=== PATIENT | female | born 1965 | race Caucasian/White ===

== ENCOUNTER 2017-08-10 10:43 | Outpatient (CLI) | payer MEDICAID ==
[~2017-08-10] VITALS: Ht 165.1 cm; Wt 63.0 kg
[~2017-08-10 10:43] MED LIST: HYDR50TA76 PO; IBP800T PO; OMEP-10 PO; celebrex; flexeril; savella
[2017-08-10] MEDS ORDERED: PANT40TA3 PO (11:03)
[2017-08-10] MEDS ORDERED: PENT100C3 PO (11:03)
[2017-08-10] MEDS ORDERED: DULO60CA6 PO (11:03)
[2017-08-10] MEDS ORDERED: TIZA4TAB3 PO (11:03)
[2017-08-10] MEDS ORDERED: PROP10TA8 PO (11:03)
[2017-08-10] MEDS ORDERED: LISI10TA2 PO (11:03)
[2017-08-10] MEDS ORDERED: LURA60TA2 PO (11:03)
[2017-08-10] MEDS ORDERED: ESTR1PAT TD (11:03)
[2017-08-10] MEDS ORDERED: HYDR-700 PO (11:03)
[2017-08-10] MEDS ORDERED: PREG200C PO (11:03)
[2017-08-10] MEDS ORDERED: LORA10TA76 PO (11:03)
[2017-08-10] MEDS ORDERED: SUCR1TAB36 PO (11:03)
[2017-08-10] MEDS ORDERED: ZOLP5TAB PO (11:03)
[2017-08-10] MEDS ORDERED: TRAM50TA2 PO (11:03)
[2017-08-10] MEDS ORDERED: LITH300T3 PO (11:03)
== END 2017-08-10 11:04 ==
LOC: PREOP 10:43
PROVIDERS: ATTEND Surgery
DX: Z01.818 Encounter for other preprocedural examination (principal); Z86.010 Personal history of colon polyps; Z80.0 Family history of malignant neoplasm of digestive organs

== ENCOUNTER 2017-08-11 11:58 | Day surgery (SDC) | payer MEDICAID ==
[~2017-08-11] VITALS: Ht 165.1 cm; Wt 63.0 kg
[~2017-08-11 11:58] MED LIST changes: +DULO60CA6 PO; +ESTR1PAT TD; +HYDR-700 PO; +LISI10TA2 PO; +LITH300T3 PO; +LORA10TA76 PO; +LURA60TA2 PO; +PANT40TA3 PO; +PENT100C3 PO; +PREG200C PO; +PROP10TA8 PO; +SUCR1TAB36 PO; +TIZA4TAB3 PO; +TRAM50TA2 PO; +ZOLP5TAB PO
--- OUTSIDE RECORDS SUMMARY | 2017-08-11 12:01 | XMS REPORT | Clinical Summary ---
Author Author [facility] Organization [facility] Address Unknown Phone Unavailable Care Team Providers Care Manager Utility Name Role Phone Unverified, Unverified Md PCP Unavailable Trace Rodriguez MD Unavailable Unavailable Isreal Langley MD Unavailable Randal Brunson MD Unavailable Source Comments Some departments are not documenting in the electronic medical record. If you do not see the information that you expected, contact Release of Information in the Health Information Management department at [phone] for further assistance in locating additional records.[facility] Allergies Active Allergy Reactions Severity Noted Date Comments Propoxyphene UNKNOWN 02/20/2013 N-Acetaminophen Flu Vac 2011 (2-49yrs) UNKNOWN 02/20/2013 Patient has an allergic reaction to the flu vaccine Current Medications Prescription Sig. Disp. Refills Start End Date Status Date OLANZapine (ZYPREXA) 15 Take 15 mg by mouth at Active mg tablet bedtime daily. hydrOXYzine (VISTARIL) 50 Take 50 mg by mouth three Active mg capsule times daily as needed. estradiol(+) (CLIMARA) Apply 1 Patch to top of Active 0.025 mg/24 hr patch skin as directed every 7 days. milnacipran(+) (SAVELLA) Take 50 mg by mouth twice Active 50 mg tablet daily. omeprazole DR(+) Take 20 mg by mouth Active (PRILOSEC) 20 mg capsule daily. cloNIDine (CATAPRESS) 0.1 Take 0.1 mg by mouth Active mg tablet twice daily. traMADol (ULTRAM) 50 mg Take 50 mg by mouth every Active tablet 6 hours as needed. Active Problems Problem Noted Date Cervicalgia 12/01/2007 Social History Tobacco Use Types Packs/Day Years Used Date Never Assessed Sex Assigned at Date Recorded Not on file Last Filed Vital Signs Not on file Plan of Treatment Health Maintenance Due Date Last Done Comments PHYSICAL (COMPREHENSIVE) 1972 EXAM PERTUSSIS VACCINE 1976 TETANUS VACCINE 1982 CERVICAL CANCER SCREENING 09/25/1995 BREAST CANCER SCREENING 2005 COLORECTAL CANCER 09/25/2015 SCREENING INFLUENZA VACCINE 01/12/2017 Results Not on filefrom Last 3 Months
--- OUTSIDE RECORDS SUMMARY | 2017-08-11 12:01 | XMS REPORT | Continuity of Care Document ---
Author Author [facility] Organization [facility] Address Unknown Phone Unavailable Allergies Active Description Code Type Severity Reaction Onset Reported/Identified Relationship to Patient Clinical Status Yes acetaminophen [id number] Drug Allergy Unknown N/A 03/24/2012 Yes influenza virus vacc,specific [id number] Drug Allergy Unknown N/A 2011 Yes levofloxacin [id number] Drug Allergy Unknown N/A 03/24/2012 Yes propoxyphene napsylate [id number] Drug Allergy Unknown N/A 03/24/2012 Medications There is no data. Problems Date Dx Coded Attending Type Code Diagnosis Diagnosed By 03/26/2012 Ot 244.9 03/26/2012 Ot 276.8 03/26/2012 Ot 285.9 03/26/2012 Ot 288.60 03/26/2012 Ot 296.80 03/26/2012 Ot 305.1 03/26/2012 Ot 530.81 03/26/2012 Ot 729.1 03/26/2012 Ot 780.09 03/26/2012 Ot 780.65 03/26/2012 Ot 790.29 03/26/2012 Ot 968.0 03/26/2012 Ot 969.4 03/26/2012 Ot E849.0 03/26/2012 Ot E950.3 03/26/2012 Ot E950.4 03/26/2012 Ot V12.79 12/02/2012 RANI AVILA, MAHAMED Cruz Ot 300.00 12/02/2012 RANI AVILA, MAHAMED Cruz Ot 599.72 12/02/2012 MAHAMED SARAVIA MD Ot 728.85 04/19/2015 HELEN HAMILTON MD Ot M50.13 06/28/2015 HELEN HAMILTON MD Ot M50.13 06/28/2015 HELEN HAMILTON MD Ot Z79.899 08/23/2015 HELEN HAMILTON MD Ot M53.3 08/23/2015 HELEN HAMILTON MD Ot M54.5 09/01/2015 HELEN HAMILTON MD Ot M53.3 09/01/2015 HELEN HAMILTON MD Ot M54.5 09/01/2015 MARVA FUENTES MD Ot F17.210 09/01/2015 MARVA FUENTES MD Ot F23 Procedures There is no data. Results There is no data. Encounters ACCT No. Visit Date/Time Discharge Status Pt. Type Provider Facility Loc./Unit Complaint [id number] 09/01/2015 08:47:00 09/01/2015 16:17:00 DIS Emergency MARVA FUENTES MD [facility] ER [id number] 08/14/2015 16:04:00 08/14/2015 23:59:59 CLS Outpatient HELEN HAMILTON MD [facility] RAD [id number] 06/28/2015 08:41:00 06/28/2015 10:08:00 DIS Outpatient HELEN HAMILTON MD [facility] CARD [id number] 04/19/2015 10:46:00 04/19/2015 11:25:00 DIS Outpatient HELNE HAMILTON MD [facility] CARD [id number] 12/02/2012 18:44:00 12/02/2012 21:05:00 DIS Emergency RANI AVILA, MAHAMED Cruz [facility] ER [id number] 03/24/2012 16:30:00 Document Registration
[2017-08-11] MEDS ORDERED: LACTATED RINGERS 1,000 ML IV STA (12:09)
[2017-08-11] MEDS ORDERED: HURRICAINE EXT TUBE (BENZOCAINE) XX PRN (12:15)
[2017-08-11 12:24] VITALS: BP 140/88
[2017-08-11] MEDS ORDERED: LACTATED RINGERS 1,000 ML IV ONE (13:00)
[2017-08-11] MEDS ORDERED: MIDAZOLAM 2 MG/2 ML (VERSED) VIAL ONE (13:11)
[2017-08-11] MEDS ORDERED: PROPOFOL INJECTION 50 ML IV ONE (13:11)
--- NOTE | 2017-08-11 13:18 | Progress Note-Pre Operative ---
Pre-Operative Progress Note H&P Reviewed The H&P was reviewed, patient examined and no changes noted. Time Seen by Provider: 13:14 Date H&P Reviewed: Aug 11, 2017 Time H&P Reviewed: 13:16 Pre-Operative Diagnosis: Chronic Gastritis, Screening Colonoscopy VINH BROWN DO Aug 11, 2017 13:18
[2017-08-11] MEDS ORDERED: proPOfol 200 MG/20 ML (DIPRIVAN) VIAL IV ONE ×2 (13:28→13:37)
--- NOTE | 2017-08-11 14:19 | Progress Note-Post Operative ---
Post-Operative Progess Note Surgeon (s)/Sand Wheeler (s) Surgeon VINH BROWN DO Sand Wheeler: none Pre-Operative Diagnosis Chronic Gastritis, Screening Colonoscopy Post-Operative Diagnosis Gastritis, Duodenitis, Duodenal Polyp, Hiatal hernia Colon polyps, Diverticula, Internal hemorrhoids Procedure & Operative Findings Date of Procedure 08/11/17 Procedure Performed/Findings 1. EGD with bx 2. Colonoscopy with snare polypectomy Anesthesia Type IV Sedation by CONTENT CREATION MANAGER Estimated Blood Loss Estimated blood loss (mL): scant Specimens/Packing Specimens Removed Duodenal polyp Antral bx Colon polyp -cecum, Sigmoid colon and Rectum VINH BROWN DO Aug 11, 2017 14:19
--- NOTE | 2017-08-11 14:20 | Endoscopy Discharge Instruct ---
Endo Procedure/Findings Findings 1.: Hiatal Hernia, Gastritis 2.: Polyp 3.: Diverticulosis 4.: Internal Hemorrhoids Discharge Instructions - Activity: You might feel a little sleepy until tomorrow. This is due to the medicine you received to relax you. Until tomorrow, you should: NOT drive a car, operate machinery or power tools. NOT drink any alcoholic beverages. NOT make any important decisions or sign importortant papers. Do not return to work until tomorrow, unless otherwise instructed. Resume previous activities tomorrow. Diet: Start by taking liquids. If you tolerate liquids, advance to solid food. Make an appointment for one week. Notify Physician - If you experience excessive bleeding, unusual abdominal pain, fever, or chest pain, contact your doctor immediately. Follow-Up: - I have received and understand the above instructions and will call my doctor if I have any further questions. Patient Signature Date Nurse Signature Other (Relationship) VINH BROWN DO Aug 11, 2017 14:20
[2017-08-11 14:30] VITALS: BP 133/86
--- NOTE | 2017-08-11 14:57 | Anesthesia-General Post-Op ---
General Patient Condition Mental Status/LOC: Same as Preop Cardiovascular: Satisfactory Nausea/Vomiting: Absent Respiratory: Satisfactory Pain: Controlled Complications: Absent Post Op Complications Complications None Follow Up Care/Instructions Patient Instructions None needed. Anesthesia/Patient Condition Patient Condition Patient was doing well after procedure, no complaints, stable vital signs, no apparent adverse anesthesia problems. SANTOS KLEIN DO Aug 11, 2017 14:56
[2017-08-11 15:00] VITALS: BP 150/95
[2017-08-11 15:03] VITALS: BP 150/95
--- NOTE | 2017-08-12 01:37 | OPERATIVE REPORT ---
DATE OF SERVICE: PREOPERATIVE DIAGNOSES: 1. Gastritis. 2. Screening colonoscopy. 3. Abdominal pain. 4. Family history of colon cancer. POSTOPERATIVE DIAGNOSES: 1. Gastritis. 2. Duodenitis. 3. Duodenal polyp. 4 Hiatal hernia. 5. Colon polyps. 6. Diverticula. 7. Internal hemorrhoids. PROCEDURES: 1. EGD with biopsy. 2. Colonoscopy with snare polypectomy. SURGEON: Rupert Escudero DO. TOWEL INSPECTOR: None. ANESTHESIA: IV sedation by the BINDING DYER. SPECIMEN: 1. One duodenal polyp. 2. Antral biopsy. 3. Colon polyps from the cecum, sigmoid and rectum. BLOOD LOSS: Scant. FLUIDS: Per anesthesia. POSTOPERATIVE CONDITION: Stable. INDICATION FOR PROCEDURE: The patient is a 51-year-old female who has been having some chronic heartburn, sounds like chronic gastritis, history of Aida fundoplication, needs a workup, also need a screening colonoscopy plus she has a strong family history of colon cancer and she had some abdominal pain. FINDINGS: The patient had some gastritis, what looked like duodenitis. She also had duodenal polyp with a hiatal hernia, in the colon she had a 3 or 4 polyps. She had some diverticula and some internal hemorrhoids. No evidence of diverticulitis. PROCEDURE NOTE: After informed consent was obtained, the patient was brought to the endoscopy suite, placed in the bed in left lateral decubitus position. She was administered IV sedation by the BINDING DYER who then monitored her vitals the entire time, heart rate, blood pressure and pulse ox and the Olympus scope was inserted down the mouth into the esophagus down the stomach. Once in the stomach, I noted some gastritis, took a picture, pushed through into the duodenum, saw a small polyp and elected to do a biopsy of this polyp. Duodenum also was little bit red like duodenitis. I pulled back into the antrum, did a biopsy of the antrum and then retroflexed the scope, saw a small hiatal hernia, took a picture of this, did not note any obvious pathology. Esophagus looked okay. Pulled the scope slowly up out of esophagus and out the mouth. Switched gloves and switched scopes and then did the colonoscopy inserting the Olympus camera into the rectum. I pushed through all the way to the cecum about 160 cm, was able to get to the cecum, took a picture of appendiceal orifice, noted a polyp, did a snare polypectomy of this and then slowly withdrew the scope insufflating, looked circumferentially at the magallon looking at the cecum, up the ascending colon to the hepatic flexure, down the transverse colon and the splenic flexure, into the descending colon, then the sigmoid, saw a couple of polyps in the sigmoid colon, did snare polypectomies in here and then saw some diverticula. Took a picture and then continued down in the rectum, saw another polyp, took a picture of this polyp and then removed this with a snare polypectomy. I then retroflexed the rectal vault, saw some small internal hemorrhoids and then removed the scope. The patient tolerated the procedure and she was recovered in the endoscopy suite. Job ID: [id number] DocumentID: [id number] Dictated Date: 08/11/2017 14:51:20 Yardage Control Operator Date: 08/12/2017 01:37:02 Dictated By: RUPERT ESCUDERO DO
== END 2017-08-11 15:02 | disposition home or self-care (01) ==
LOC: ENDO 11:58
PROVIDERS: ATTEND Surgery
DX: Z12.11 Encounter for screening for malignant neoplasm of colon (principal); K29.50 Unspecified chronic gastritis without bleeding; K29.80 Duodenitis without bleeding; K31.7 Polyp of stomach and duodenum; K63.5 Polyp of colon; D12.5 Benign neoplasm of sigmoid colon; D12.8 Benign neoplasm of rectum; K44.9 Diaphragmatic hernia without obstruction or gangrene; K57.30 Diverticulosis of large intestine without perforation or abscess without bleeding; K64.8 Other hemorrhoids; Z80.0 Family history of malignant neoplasm of digestive organs; I10 Essential (primary) hypertension; M79.7 Fibromyalgia; Z86.010 Personal history of colon polyps; Z98.1 Arthrodesis status; F17.210 Nicotine dependence, cigarettes, uncomplicated; J45.909 Unspecified asthma, uncomplicated; F32.9 Major depressive disorder, single episode, unspecified; F41.9 Anxiety disorder, unspecified; F43.10 Post-traumatic stress disorder, unspecified

== ENCOUNTER 2017-11-16 17:21 | Emergency (ER) | payer OTHER, MEDICAID ==
[~2017-11-16] VITALS: Ht 167.6 cm; Wt 72.6 kg
[2017-11-16] MEDS ORDERED: WATER (STERILE) FOR INJECTION 20 ML ONE (17:25)
[2017-11-16] MEDS ORDERED: ZIPRASIDONE 20 MG INJ (GEODON) VIAL IM ONE ×2 (17:25→17:45)
--- OUTSIDE RECORDS SUMMARY | 2017-11-16 17:26 | XMS REPORT | Clinical Summary ---
Author Author [facility] Organization [facility] Address Unknown Phone Unavailable Care Team Providers Care Fixer Boarding Room Name Role Phone Unverified, Unverified Md PCP Unavailable Trace Rodriguez MD Unavailable Unavailable Isreal Langley MD Unavailable Randal Brunson MD Unavailable Source Comments Some departments are not documenting in the electronic medical record. If you do not see the information that you expected, contact Release of Information in the Health Information Management department at [phone] for further assistance in locating additional records.[facility] Allergies Active Allergy Reactions Severity Noted Date [...] PHYSICAL (COMPREHENSIVE) 1972 EXAM PERTUSSIS VACCINE 1976 HIV SCREENING 1980 TETANUS VACCINE 1982 CERVICAL CANCER SCREENING 09/25/1995 BREAST CANCER SCREENING 2005 COLORECTAL CANCER 09/25/2015 SCREENING INFLUENZA VACCINE 03/14/2018 Results Not on filefrom Last 3 Months
--- OUTSIDE RECORDS SUMMARY | 2017-11-16 17:26 | XMS REPORT ---
Author Author RAQUEL LOAIZA Organization [facility] Address [address] [place] [address] Care Team Providers Care Coal Hiker Name Role Phone RAQUEL LOAIZA Unavailable PROBLEMS Type Condition ICD9-CM Code [id number] Code Onset Dates Condition Status SNOMED Code Problem Bipolar disorder, current episode depressed, moderate F31.32 Active 341955744 Problem Generalized anxiety disorder F41.1 Active 51570929 Problem Borderline personality disorder F60.3 Active 52659824 Problem Bipolar affective disorder, currently depressed, mild F31.31 Active [id number] ALLERGIES No Information ENCOUNTERS Encounter Location Date Diagnosis [facility] [id number] [place] [address] [phone]- [phone] Aug, Bipolar disorder, current episode depressed, moderate F31.32 and Generalized anxiety disorder F41.1 [facility] [id number] [place] [address] 12858- 9069 Aug, Bipolar disorder, current episode depressed, moderate F31.32 and Generalized anxiety disorder F41.1 [facility] [id number] [place] [address] [phone]- [phone] Aug, Bipolar disorder, current episode depressed, moderate F31.32 and Generalized anxiety disorder F41.1 [facility] [id number] [place] [address] [phone]- 1755 Jul, Bipolar disorder, current episode depressed, moderate F31.32 and Generalized anxiety disorder F41.1 [facility] [id number] [place] [address] 95637- 3623 Jul, Bipolar disorder, current episode depressed, moderate F31.32 and Generalized anxiety disorder F41.1 [place] [id number] [place] [address] 80572- 4241 Jun, Bipolar affective disorder, currently depressed, mild F31.31 ; Generalized anxiety disorder F41.1 and Borderline personality disorder F60.3 [place] [address] [place] [address] 55342- 3120 May, Bipolar disorder, current episode depressed, moderate F31.32 and Generalized anxiety disorder F41.1 [facility] [address] [place] [address] 59789- 2953 May, Bipolar disorder, current episode depressed, moderate F31.32 and Generalized anxiety disorder F41.1 [place] [id number] [place] [address] 55012- 9798 Apr, Bipolar disorder, current episode depressed, moderate F31.32 and Generalized anxiety disorder F41.1 [place] [address] [place] [address] 16622- 3149 Apr, Bipolar affective disorder, currently depressed, mild F31.31 and Generalized anxiety disorder F41.1 [place] [id number] [place] [address] 20380- 4855 Apr, Bipolar affective disorder, currently depressed, mild F31.31 and Generalized anxiety disorder F41.1 [place] [address] [place] [address] 34260- 8666 Apr, Bipolar affective disorder, currently depressed, mild F31.31 ; Generalized anxiety disorder F41.1 and Borderline personality disorder F60.3 [place] [address] [place] [address] 55846- 6845 Mar, Bipolar affective disorder, currently depressed, mild F31.31 and Generalized anxiety disorder F41.1 [place] [address] [place] [address] 74799- 7040 Mar, Bipolar affective disorder, currently depressed, mild F31.31 and Generalized anxiety disorder F41.1 [facility] [address] [place] [address] 72522- 1657 Mar, Bipolar affective disorder, currently depressed, mild F31.31 and Generalized anxiety disorder F41.1 [place] [address] [address] Mar, Bipolar affective disorder, currently depressed, mild F31.31 and Generalized anxiety disorder F41.1 [place] [address] [address] Mar, Borderline personality disorder F60.3 ; Generalized anxiety disorder F41.1 and Bipolar affective disorder, currently depressed, mild F31.31 [place] [address] [address] Feb, Bipolar affective disorder, currently depressed, mild F31.31 and Generalized anxiety disorder F41.1 [place] [address] [place] [address] 65845- 1663 Feb, Bipolar affective disorder, currently depressed, mild F31.31 ; Generalized anxiety disorder F41.1 and Borderline personality disorder F60.3 [place] [address] [place] [address] 57735- 9988 Feb, Affective disorder F39 and Anxiety state, unspecified F41.1 [place] [id number] [place] [address] 79831- 6741 Jan, Affective disorder F39 and Anxiety state, unspecified F41.1 IMMUNIZATIONS No Known Immunizations SOCIAL HISTORY Never Assessed REASON FOR VISIT Depression and anxiety. PLAN OF CARE Activity Details Follow Up 1 Week Reason:depression and anxiety VITAL SIGNS MEDICATIONS Medication Instructions Dosage Frequency Start Date End Date Duration Status Propranolol HCl Active [place] Active Cymbalta Active Clonidine HCl Active Zyprexa Active Cephalexin Active Carafate Active Clarinex Active Lisinopril Active Meprobamate Active RESULTS No Results PROCEDURES Procedure Date Ordered Result Body Site Psychotherapy, patient &/family, 45 minutes, established patient Feb 08, 2017 INSTRUCTIONS MEDICATIONS ADMINISTERED No Known Medications MEDICAL (GENERAL) HISTORY Type Description Date Medical History HTN Medical History Asthma Medical History hypothyroidism Medical History IC Medical History hx Giovana Burre 1983 and 1984, 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 for keren/psychosis August 2015 Hospitalization History Jenise Davilaplin for psychosis/keren July 2015 Hospitalization History tachycardia and had heart monitor, observation 2012
--- OUTSIDE RECORDS SUMMARY | 2017-11-16 17:27 | XMS REPORT ---
Author Author RAQUEL LOAIZA Organization [facility] Address [address] [place] [address] Care Team Providers Care Dessert Cup Machine Feeder Name Role Phone RAQUEL LOAIZA Unavailable PROBLEMS Type Condition ICD9-CM Code [id number] Code Onset Dates Condition Status SNOMED Code Problem Bipolar disorder, current episode depressed, moderate F31.32 Active 321611118 Problem Generalized anxiety disorder F41.1 Active 99033692 Problem Borderline personality disorder F60.3 Active 26309804 Problem Bipolar affective disorder, currently depressed, mild F31.31 Active 708010092 ALLERGIES No Information ENCOUNTERS Encounter Location Date Diagnosis [facility] [id number] [place] [address] 99727- [phone] Aug, Bipolar disorder, current episode depressed, moderate F31.32 and Generalized anxiety disorder F41.1 [facility] [id number] [place] [address] 91804- [phone] Aug, Bipolar disorder, current episode depressed, moderate F31.32 and Generalized anxiety disorder F41.1 [facility] [id number] [place] [address] 34161- 4146 Aug, Bipolar disorder, current episode depressed, moderate F31.32 and Generalized anxiety disorder F41.1 [facility] [id number] [place] [address] 89617- 8162 Jul, Bipolar disorder, current episode depressed, moderate F31.32 and Generalized anxiety disorder F41.1 [facility] [id number] [place] [address] 52455- 7402 Jul, Bipolar disorder, current episode depressed, moderate F31.32 and Generalized anxiety disorder F41.1 [place] [id number] [place] [address] 20572- 6285 Jun, Bipolar affective disorder, currently depressed, mild F31.31 ; Generalized anxiety disorder F41.1 and Borderline personality disorder F60.3 [place] [address] [place] [address] 02943- 4233 May, Bipolar disorder, current episode depressed, moderate F31.32 and Generalized anxiety disorder F41.1 [facility] [address] [place] [address] 66077- 5410 May, Bipolar disorder, current episode depressed, moderate F31.32 and Generalized anxiety disorder F41.1 [place] [id number] [place] [address] 83635- 5858 Apr, Bipolar disorder, current episode depressed, moderate F31.32 and Generalized anxiety disorder F41.1 [place] [address] [place] [address] 17340- 9223 Apr, Bipolar affective disorder, currently depressed, mild F31.31 and Generalized anxiety disorder F41.1 [place] [id number] [place] [address] 75758- 4647 Apr, Bipolar affective disorder, currently depressed, mild F31.31 and Generalized anxiety disorder F41.1 [place] [address] [place] [address] 00188- 1611 Apr, Bipolar affective disorder, currently depressed, mild F31.31 ; Generalized anxiety disorder F41.1 and Borderline personality disorder F60.3 [place] [address] [place] [address] 19983- 9546 Mar, Bipolar affective disorder, currently depressed, mild F31.31 and Generalized anxiety disorder F41.1 [place] [address] [place] [address] 73693- 4935 Mar, Bipolar affective disorder, currently depressed, mild F31.31 and Generalized anxiety disorder F41.1 [facility] [address] [place] [address] 12203- 6971 Mar, Bipolar affective disorder, currently depressed, mild F31.31 and Generalized anxiety disorder F41.1 [place] [address] [address] Mar, Bipolar affective disorder, currently depressed, mild F31.31 and Generalized anxiety disorder F41.1 [place] [address] [address] Mar, Borderline personality disorder F60.3 ; Generalized anxiety disorder F41.1 and Bipolar affective disorder, currently depressed, mild F31.31 [place] [address] [address] Feb, Bipolar affective disorder, currently depressed, mild F31.31 and Generalized anxiety disorder F41.1 [place] [address] [place] [address] 39496- 4525 Feb, Bipolar affective disorder, currently depressed, mild F31.31 ; Generalized anxiety disorder F41.1 and Borderline personality disorder F60.3 [place] [address] [place] [address] 56936- 1519 Feb, Affective disorder F39 and Anxiety state, unspecified F41.[address] [place] [address] 46531- 0508 Jan, Affective disorder F39 and Anxiety state, unspecified F41.1 IMMUNIZATIONS No Known Immunizations SOCIAL HISTORY Never Assessed REASON FOR VISIT BH f/u, Depression and anxiety. PLAN OF CARE Activity Details Follow Up Next available Reason:depression and anxiety VITAL SIGNS MEDICATIONS Unknown Medications RESULTS No Results PROCEDURES Procedure Date Ordered Result Body Site Psychotherapy, patient &/family, 45 minutes, established patient Feb 18, 2017 INSTRUCTIONS MEDICATIONS ADMINISTERED No Known Medications [...] Hospital[facility] 2015 Hospitalization History [facility] Mc[facility]on for psychosis/keren July 2015 Hospitalization History tachycardia and had heart monitor, observation 2012
--- OUTSIDE RECORDS SUMMARY | 2017-11-16 17:27 | XMS REPORT ---
Author Author RAQUEL LOAIZA Organization [facility] Address [address] [place] [address] Care Team Providers Care Transplant Nurse Practitioner Name Role Phone RAQUEL LOAIZA Unavailable PROBLEMS Type Condition ICD9-CM Code [id number] Code Onset Dates Condition Status SNOMED Code Problem Bipolar disorder, current episode depressed, moderate F31.32 Active 587877422 Problem Generalized anxiety disorder F41.1 Active 66027009 Problem Borderline personality disorder F60.3 Active 54612942 Problem Bipolar affective disorder, currently depressed, mild F31.31 Active [id number] ALLERGIES No Information ENCOUNTERS Encounter Location Date Diagnosis [place] [id number] [place] [address] 03112- 8851 Dec, [place] [id number] [place] [address] 47680- 0520 Sep, Bipolar affective disorder, currently depressed, mild F31.31 ; Generalized anxiety disorder F41.1 ; Borderline personality disorder F60.3 and High risk medication use Z79.899 [place] [id number] [place] [address] 97196- 4628 Aug, Bipolar disorder, current episode depressed, moderate F31.32 and Generalized anxiety disorder F41.1 [place] [id number] [place] [address] 85661- 8565 Aug, Bipolar disorder, current episode depressed, moderate F31.32 and Generalized anxiety disorder F41.1 [place] [id number] [place] [address] 42290- 5297 Aug, Bipolar disorder, current episode depressed, moderate F31.32 and Generalized anxiety disorder F41.1 [place] [id number] [place] [address] 74805- 2018 Jul, Bipolar disorder, current episode depressed, moderate F31.32 and Generalized anxiety disorder F41.1 [facility] [address], [place] [address] Jul, Bipolar disorder, current episode depressed, moderate F31.32 and Generalized anxiety disorder F41.1 [facility] [address], [place] [address] Jun, Bipolar affective disorder, currently depressed, mild F31.31 ; Generalized anxiety disorder F41.1 and Borderline personality disorder F60.3 [facility] [address] [place] [address] 66974- 9570 May, Bipolar disorder, current episode depressed, moderate F31.32 and Generalized anxiety disorder F41.1 [facility] [address] [place] [address] 41884- 5399 May, Bipolar disorder, current episode depressed, moderate F31.32 and Generalized anxiety disorder F41.1 [facility] [address] [place] [address] 29543- 5844 Apr, Bipolar disorder, current episode depressed, moderate F31.32 and Generalized anxiety disorder F41.1 [facility] [address] [place] [address] 38532- 7346 Apr, Bipolar affective disorder, currently depressed, mild F31.31 and Generalized anxiety disorder F41.1 [facility] [address], [place] [address] Apr, Bipolar affective disorder, currently depressed, mild F31.31 and Generalized anxiety disorder F41.1 [facility] [address], [place] [address] Apr, Bipolar affective disorder, currently depressed, mild F31.31 ; Generalized anxiety disorder F41.1 and Borderline personality disorder F60.3 [facility] [address], [place] [address] Mar, Bipolar affective disorder, currently depressed, mild F31.31 and Generalized anxiety disorder F41.1 [place] [address], [place] [address] Mar, Bipolar affective disorder, currently depressed, mild F31.31 and Generalized anxiety disorder F41.1 [place] [address] [place] [address] 28333- 9397 Mar, Bipolar affective disorder, currently depressed, mild F31.31 and Generalized anxiety disorder F41.1 [place] [id number] [place] [address] 34432- 0002 Mar, Bipolar affective disorder, currently depressed, mild F31.31 and Generalized anxiety disorder F41.1 [place] [id number] [place] [address] 65014- 7893 Mar, Borderline personality disorder F60.3 ; Generalized anxiety disorder F41.1 and Bipolar affective disorder, currently depressed, mild F31.31 [place] [id number] [place] [address] 03060- 1689 Feb, Bipolar affective disorder, currently depressed, mild F31.31 and Generalized anxiety disorder F41.1 [place] [id number] [place] [address] 39349- 8608 Feb, Bipolar affective disorder, currently depressed, mild F31.31 ; Generalized anxiety disorder F41.1 and Borderline personality disorder F60.3 [place] [address] [place] [address] 52966- 2337 Feb, Affective disorder F39 and Anxiety state, unspecified F41.1 [place] [address] [place] [address] 89523- 4053 Jan, Affective disorder F39 and Anxiety state, unspecified F41.1 IMMUNIZATIONS No Known Immunizations SOCIAL HISTORY Never Assessed REASON FOR VISIT f/u, Depression and anxiety. 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 Medical History fibromyalgia Medical History mixed connective tissue disease from unknown etiology Medical History Vitamin D deficiency Surgical History C5-C6 spinal fusion Surgical History pilondial cyst removed Surgical History partial hysterectomy Surgical History hiatal hernia repair Surgical History cholecysectomy Surgical History tonsillectomy Hospitalization History OSH 4 times Hospitalization History [facility] for keren/psychosis August 2015 Hospitalization History [facility] for psychosis/keren July 2015 Hospitalization History tachycardia and had heart monitor, observation 2011
--- OUTSIDE RECORDS SUMMARY | 2017-11-16 17:27 | XMS REPORT ---
Author Author RAQUEL LOAIZA Organization [facility] Address [address] [place] [address] Care Team Providers Care Finance Executive Name Role Phone RAQUEL LOAIZA Unavailable PROBLEMS Type Condition ICD9-CM Code XAL27-TA Code Onset Dates Condition Status SNOMED Code Problem Bipolar disorder, current episode depressed, moderate F31.32 Active 639012921 Problem Generalized anxiety disorder F41.1 Active 50924888 Problem Borderline personality disorder F60.3 Active 08769878 Problem Bipolar affective disorder, currently depressed, mild F31.31 Active [id number] ALLERGIES No Information ENCOUNTERS Encounter Location Date Diagnosis [place] [id number] [place] [address] 75199- 6109 Dec, [place] [id number] [place] [address] 97611- 0162 Sep, Bipolar affective disorder, currently depressed, mild F31.31 ; Generalized anxiety disorder F41.1 ; Borderline personality disorder F60.3 and High risk medication use Z79.899 [place] [id number] [place] [address] 16737- 8320 Aug, Bipolar disorder, current episode depressed, moderate F31.32 and Generalized anxiety disorder F41.1 [place] [id number] [place] [address] 23951- 1256 Aug, Bipolar disorder, current episode depressed, moderate F31.32 and Generalized anxiety disorder F41.1 [place] [id number] [place] [address] 41982- 7137 Aug, Bipolar disorder, current episode depressed, moderate F31.32 and Generalized anxiety disorder F41.1 [place] [id number] [place] [address] 63425- 6222 Jul, Bipolar disorder, current episode depressed, moderate F31.32 and Generalized anxiety disorder F41.1 [facility] [address] [address]- [address] Jul, Bipolar disorder, current episode depressed, moderate F31.32 and Generalized anxiety disorder F41.1 [facility] [address] [address]- [address] Jun, Bipolar affective disorder, currently depressed, mild F31.31 ; Generalized anxiety disorder F41.1 and Borderline personality disorder F60.3 [facility] [address] [place] [address] 34461- 1871 May, Bipolar disorder, current episode depressed, moderate F31.32 and Generalized anxiety disorder F41.1 [facility] [address] [place] [address] 34058- 7023 May, Bipolar disorder, current episode depressed, moderate F31.32 and Generalized anxiety disorder F41.1 [facility] [address] [place] [address] 92331- 1289 Apr, Bipolar disorder, current episode depressed, moderate F31.32 and Generalized anxiety disorder F41.1 [facility] [address] [place] [address] 43001- 8949 Apr, Bipolar affective disorder, currently depressed, mild F31.31 and Generalized anxiety disorder F41.1 [facility] [address] [address]- 3706 Apr, Bipolar affective disorder, currently depressed, mild F31.31 and Generalized anxiety disorder F41.1 [facility] [address] [address]- 3336 Apr, Bipolar affective disorder, currently depressed, mild F31.31 ; Generalized anxiety disorder F41.1 and Borderline personality disorder F60.3 [facility] [address] [address]- 6962 Mar, Bipolar affective disorder, currently depressed, mild F31.31 and Generalized anxiety disorder F41.1 [place] [address] [address]- 7826 Mar, Bipolar affective disorder, currently depressed, mild F31.31 and Generalized anxiety disorder F41.1 [place] [address] [place] [address] 31829- 7045 Mar, Bipolar affective disorder, currently depressed, mild F31.31 and Generalized anxiety disorder F41.1 [place] [id number] [place] [address] 51612- 9737 Mar, Bipolar affective disorder, currently depressed, mild F31.31 and Generalized anxiety disorder F41.1 [place] [id number] [place] [address] 58224- 2436 Mar, Borderline personality disorder F60.3 ; Generalized anxiety disorder F41.1 and Bipolar affective disorder, currently depressed, mild F31.31 [place] [id number] [place] [address] 14346- 7930 Feb, Bipolar affective disorder, currently depressed, mild F31.31 and Generalized anxiety disorder F41.1 [place] [id number] [place] [address] 39124- 2362 Feb, Bipolar affective disorder, currently depressed, mild F31.31 ; Generalized anxiety disorder F41.1 and Borderline personality disorder F60.3 [place] [address] [place] [address] 09353- 4532 Feb, Affective disorder F39 and Anxiety state, unspecified F41.1 [place] [address] [place] [address] 50981- 5308 Jan, Affective disorder F39 and Anxiety state, unspecified F41.1 IMMUNIZATIONS No Known Immunizations SOCIAL HISTORY Never Assessed REASON FOR VISIT f/u, Depression and anxiety. PLAN OF CARE Activity Details Follow Up Next available Reason:depression and anxiety VITAL SIGNS MEDICATIONS Unknown Medications RESULTS No Results PROCEDURES Procedure Date Ordered Result Body Site Psychotherapy, patient &/family, 45 minutes, established patient Apr 08, 2017 INSTRUCTIONS MEDICATIONS ADMINISTERED No Known [...] Hospitalization History OSH 4 times Hospitalization History [facility] for keren/psychosis August 2015 Hospitalization History [facility] for psychosis/keren July 2015 Hospitalization History tachycardia and had heart monitor, observation 2011
--- OUTSIDE RECORDS SUMMARY | 2017-11-16 17:27 | XMS REPORT ---
Author Author RAQUEL LOAIZA Organization [facility] Address [address] [place] [address] Care Team Providers Care Dampproofer Name Role Phone RAQUEL LOAIZA Unavailable PROBLEMS Type Condition ICD9-CM Code MOQ90-FV Code Onset Dates Condition Status SNOMED Code Problem Bipolar disorder, current episode depressed, moderate F31.32 Active 937590556 Problem Generalized anxiety disorder F41.1 Active 90872729 Problem Borderline personality disorder F60.3 Active 58831157 Problem Bipolar affective disorder, currently depressed, mild F31.31 Active [id number] ALLERGIES No Information ENCOUNTERS Encounter Location Date Diagnosis [place] [id number] [place] [address] 22360- 4874 Dec, [place] [id number] [place] [address] 58692- 2971 Sep, Bipolar affective disorder, currently depressed, mild F31.31 ; Generalized anxiety disorder F41.1 ; Borderline personality disorder F60.3 and High risk medication use Z79.899 [place] [id number] [place] [address] 53882- 3506 Aug, Bipolar disorder, current episode depressed, moderate F31.32 and Generalized anxiety disorder F41.1 [place] [id number] [place] [address] 84150- 4023 Aug, Bipolar disorder, current episode depressed, moderate F31.32 and Generalized anxiety disorder F41.1 [place] [id number] [place] [address] 35151- 2742 Aug, Bipolar disorder, current episode depressed, moderate F31.32 and Generalized anxiety disorder F41.1 [place] [id number] [place] [address] 61777- 5637 Jul, Bipolar disorder, current episode depressed, moderate F31.32 and Generalized anxiety disorder F41.1 [facility] [address], [place] [address]- [address]16 Jul, Bipolar disorder, current episode depressed, moderate F31.32 and Generalized anxiety disorder F41.1 [facility] [address], [place] [address]- 2044 Jun, Bipolar affective disorder, currently depressed, mild F31.31 ; Generalized anxiety disorder F41.1 and Borderline personality disorder F60.3 [facility] [address] [place] [address] 97690- 8231 May, Bipolar disorder, current episode depressed, moderate F31.32 and Generalized anxiety disorder F41.1 [facility] [address] [place] [address] 80777- 8109 May, Bipolar disorder, current episode depressed, moderate F31.32 and Generalized anxiety disorder F41.1 [facility] [address] [place] [address] 03831- 8241 Apr, Bipolar disorder, current episode depressed, moderate F31.32 and Generalized anxiety disorder F41.1 [facility] [address] [place] [address] 94958- 5335 Apr, Bipolar affective disorder, currently depressed, mild F31.31 and Generalized anxiety disorder F41.1 [facility] [address], [place] [address]- 0458 Apr, Bipolar affective disorder, currently depressed, mild F31.31 and Generalized anxiety disorder F41.1 [facility] [address], [place] [address]- 2794 Apr, Bipolar affective disorder, currently depressed, mild F31.31 ; Generalized anxiety disorder F41.1 and Borderline personality disorder F60.3 [facility] [address], [place] [address]- 2300 Mar, Bipolar affective disorder, currently depressed, mild F31.31 and Generalized anxiety disorder F41.1 [place] [address], [place] [address]- 1789 Mar, Bipolar affective disorder, currently depressed, mild F31.31 and Generalized anxiety disorder F41.1 [place] [address] [place] [address] 21400- 5574 Mar, Bipolar affective disorder, currently depressed, mild F31.31 and Generalized anxiety disorder F41.1 [place] [id number] [place] [address] 89308- 6196 Mar, Bipolar affective disorder, currently depressed, mild F31.31 and Generalized anxiety disorder F41.1 [place] [id number] [place] [address] 51759- 4662 Mar, Borderline personality disorder F60.3 ; Generalized anxiety disorder F41.1 and Bipolar affective disorder, currently depressed, mild F31.31 [place] [id number] [place] [address] 13039- 1714 Feb, Bipolar affective disorder, currently depressed, mild F31.31 and Generalized anxiety disorder F41.1 [place] [id number] [place] [address] 75582- 1713 Feb, Bipolar affective disorder, currently depressed, mild F31.31 ; Generalized anxiety disorder F41.1 and Borderline personality disorder F60.3 [place] [address] [place] [address] 10691- 3486 Feb, Affective disorder F39 and Anxiety state, unspecified F41.1 [place] [address] [place] [address] 65391- 4625 Jan, Affective disorder F39 and Anxiety state, unspecified F41.1 IMMUNIZATIONS No Known Immunizations SOCIAL HISTORY Never Assessed REASON FOR VISIT f/u, Depression and anxiety. PLAN OF CARE Activity Details Follow Up 1 Week Reason:deperession and anxiety VITAL SIGNS MEDICATIONS Unknown Medications RESULTS No Results PROCEDURES Procedure Date Ordered Result Body Site Psychotherapy, patient &/family, 45 minutes, established patient Apr 13, 2017 INSTRUCTIONS MEDICATIONS ADMINISTERED No Known Medications [...] keren/psychosis August 2015 Hospitalization History [facility] for psychosis/keren July 2015 Hospitalization History tachycardia and had heart monitor, observation 2011
--- OUTSIDE RECORDS SUMMARY | 2017-11-16 17:27 | XMS REPORT ---
Author Author MAYO CALIRE Organization [facility] Address [address] [place] [address] Care Team Providers Care Administrative Support Manager Name Role Phone CLARENCEBALJINDER JAIMEA Unavailable PROBLEMS Type Condition ICD9-CM Code XUN86-SX Code Onset Dates Condition Status SNOMED Code Problem Bipolar disorder, current episode depressed, moderate F31.32 Active 263789985 Problem Generalized anxiety disorder F41.1 Active 48062575 Problem Borderline personality disorder F60.3 Active 62506182 Problem Bipolar affective disorder, currently depressed, mild F31.31 Active [id number] ALLERGIES Substance Reaction Event Type Date Status Depakote swelling Drug Allergy Feb, Active flu shot r/t hx Gullian [place] Non Drug Allergy Feb, Active ENCOUNTERS Encounter Location Date Diagnosis [facility] [id number] [place] [address] 64590- 5194 Sep, [facility] [id number] [place] [address] 15033[address] 2621 Aug, Bipolar disorder, current episode depressed, moderate F31.32 and Generalized anxiety disorder F41.1 [facility] [id number] [place] [address] 61308- 2394 Aug, Bipolar disorder, current episode depressed, moderate F31.32 and Generalized anxiety disorder F41.1 [facility] [id number] [place] [address] 66164- 0071 Aug, Bipolar disorder, current episode depressed, moderate F31.32 and Generalized anxiety disorder F41.1 [facility] [id number] [place] [address] 58294- 9403 Jul, Bipolar disorder, current episode depressed, moderate F31.32 and Generalized anxiety disorder F41.1 [facility] [id number] [address] Jul, Bipolar disorder, current episode depressed, moderate F31.32 and Generalized anxiety disorder F41.1 [facility] [id number] [place] [address] 35604- 5252 Jun, Bipolar affective disorder, currently depressed, mild F31.31 ; Generalized anxiety disorder F41.1 and Borderline personality disorder F60.3 [facility] [id number] [place] [address] 76806- 7523 May, Bipolar disorder, current episode depressed, moderate F31.32 and Generalized anxiety disorder F41.1 [place] [id number] [place] [address] 67793- 3961 May, Bipolar disorder, current episode depressed, moderate F31.32 and Generalized anxiety disorder F41.1 [place] [id number] [place] [address] 70456- 5240 Apr, Bipolar disorder, current episode depressed, moderate F31.32 and Generalized anxiety disorder F41.1 [place] [id number] [place] [address] 29000- 5139 Apr, Bipolar affective disorder, currently depressed, mild F31.31 and Generalized anxiety disorder F41.1 [place] [id number] [place] [address] 38455- 7443 Apr, Bipolar affective disorder, currently depressed, mild F31.31 and Generalized anxiety disorder F41.1 [facility] [id number] [place] [address] 67792- 5485 Apr, Bipolar affective disorder, currently depressed, mild F31.31 ; Generalized anxiety disorder F41.1 and Borderline personality disorder F60.3 [facility] [id number] [place] [address] 79142- 6094 Mar, Bipolar affective disorder, currently depressed, mild F31.31 and Generalized anxiety disorder F41.1 [place] [id number] [place] [address] 44433- 4970 Mar, Bipolar affective disorder, currently depressed, mild F31.31 and Generalized anxiety disorder F41.1 [place] [id number] [place] [address] 82572- 6414 Mar, Bipolar affective disorder, currently depressed, mild F31.31 and Generalized anxiety disorder F41.1 [place] [id number] [place] [address] 08256- 7712 Mar, Bipolar affective disorder, currently depressed, mild F31.31 and Generalized anxiety disorder F41.1 [place] [id number] [place] [address] 07037- 5133 Mar, Borderline personality disorder F60.3 ; Generalized anxiety disorder F41.1 and Bipolar affective disorder, currently depressed, mild F31.31 [place] [id number] [place] [address] 60651- 7602 Feb, Bipolar affective disorder, currently depressed, mild F31.31 and Generalized anxiety disorder F41.1 [place] [id number] [place] [address] 80960- 4508 Feb, Bipolar affective disorder, currently depressed, mild F31.31 ; Generalized anxiety disorder F41.1 and Borderline personality disorder F60.3 [place] [id number] [place] [address] 06641- 2439 Feb, Affective disorder F39 and Anxiety state, unspecified F41.1 [place] [id number] [place] [address] 31213- 7767 Jan, Affective disorder F39 and Anxiety state, unspecified F41.1 IMMUNIZATIONS No Known Immunizations SOCIAL HISTORY Never Assessed REASON FOR VISIT intake- Gordon VELASCO PLAN OF CARE Activity Details Follow Up 4 Weeks Reason: VITAL SIGNS Height 65.5 in 2017-02-22 Weight 158 lbs 2017-02-22 Heart Rate 84 bpm 2017-02-22 Respiratory Rate 22 2017-02-22 BMI 25.89 kg/m2 2017-02-22 Blood pressure systolic 124 mmHg 2017-02-22 Blood pressure diastolic 78 mmHg 2017-02-22 MEDICATIONS Medication Instructions Dosage Frequency Start Date End Date Duration Status Carafate 1 GM Orally Once a day 1 tablet on an empty stomach 24h Active Protonix 40 MG Orally Once a day 1 tablet 24h Active Climara 0.0375 MG/24HR Transdermal once weekly 1 patch to skin Active Lisinopril 10 MG Orally Once a day 1 tablet 24h Active Tizanidine HCl 4 MG Orally Three times a day 1 tablet 8h Active Clarinex Active Zetia 10 MG Orally at bedtime 1 tablet Active Clonidine HCl Active Elmiron 100 MG Orally Three times a day 1 capsule on an empty stomach 8h Active Eulonia Active Cymbalta Active Latuda 60 MG Orally Once a day 0.5 tablet every dinner time for one week then take 1 tablet every dinner time 24h Feb, 30 day(s) Active Zyprexa Active Lyrica 200 MG Orally Three times a day 1 capsule 8h Active Cephalexin 500 MG Orally Once a day 1 capsule 24h Active Fenofibrate 145 MG Orally at bedtime 1 tablet Active Meprobamate Active Propranolol HCl Active RESULTS No Results PROCEDURES No Known procedures INSTRUCTIONS MEDICATIONS ADMINISTERED No Known Medications MEDICAL [...] Hospitalization History OSH 4 times Hospitalization History [facility] for keren/psychosis August 2015 Hospitalization History [facility] for psychosis/keren July 2015 Hospitalization History tachycardia and had heart monitor, observation 2011
--- OUTSIDE RECORDS SUMMARY | 2017-11-16 17:27 | XMS REPORT ---
Author Author RAQUEL LOAIZA Organization [facility] Address [address] [place] [address] Care Team Providers Care Cloth Printer Name Role Phone RAQUEL LOAIZA Unavailable PROBLEMS Type Condition ICD9-CM Code BCD29-NP Code Onset Dates Condition Status SNOMED Code Problem Bipolar disorder, current episode depressed, moderate F31.32 Active 446092205 Problem Generalized anxiety disorder F41.1 Active 95684542 Problem Borderline personality disorder F60.3 Active 69154437 Problem Bipolar affective disorder, currently depressed, mild F31.31 Active 968226607 ALLERGIES No Information ENCOUNTERS Encounter Location Date Diagnosis [place] [id number] [place] [address] 33878- [address]113 Dec, [place] [id number] [place] [address] 36658- 8642 Sep, Bipolar affective disorder, currently depressed, mild F31.31 ; Generalized anxiety disorder F41.1 ; Borderline personality disorder F60.3 and High risk medication use Z79.899 [place] [id number] [place] [address] 89344- 2124 Aug, Bipolar disorder, current episode depressed, moderate F31.32 and Generalized anxiety disorder F41.1 [place] [id number] [place] [address] 29785- 0473 Aug, Bipolar disorder, current episode depressed, moderate F31.32 and Generalized anxiety disorder F41.1 [place] [id number] [place] [address] 12227- 3175 Aug, Bipolar disorder, current episode depressed, moderate F31.32 and Generalized anxiety disorder F41.1 [place] [id number] [place] [address] 71793- 4174 Jul, Bipolar disorder, current episode depressed, moderate F31.32 and Generalized anxiety disorder F41.1 [facility] [address] [address] Jul, Bipolar disorder, current episode depressed, moderate F31.32 and Generalized anxiety disorder F41.1 [facility] [address], [place] [address] Jun, Bipolar affective disorder, currently depressed, mild F31.31 ; Generalized anxiety disorder F41.1 and Borderline personality disorder F60.3 [facility] [address] [place] [address] 14468- 5966 May, Bipolar disorder, current episode depressed, moderate F31.32 and Generalized anxiety disorder F41.1 [facility] [address] [place] [address] 92201- 9140 May, Bipolar disorder, current episode depressed, moderate F31.32 and Generalized anxiety disorder F41.1 [facility] [address] [place] [address] 58929- 8613 Apr, Bipolar disorder, current episode depressed, moderate F31.32 and Generalized anxiety disorder F41.1 [facility] [address] [place] [address] 90263- 3687 Apr, Bipolar affective disorder, currently depressed, mild F31.31 and Generalized anxiety disorder F41.1 [facility] [address] [address] Apr, Bipolar affective disorder, currently depressed, mild F31.31 and Generalized anxiety disorder F41.1 [facility] [address] [address] 9559 Apr, Bipolar affective disorder, currently depressed, mild F31.31 ; Generalized anxiety disorder F41.1 and Borderline personality disorder F60.3 [facility] [address] [address] Mar, Bipolar affective disorder, currently depressed, mild F31.31 and Generalized anxiety disorder F41.1 [place] [address] [address] Mar, Bipolar affective disorder, currently depressed, mild F31.31 and Generalized anxiety disorder F41.1 [place] [address] [place] [address] 74468- 9378 Mar, Bipolar affective disorder, currently depressed, mild F31.31 and Generalized anxiety disorder F41.1 [place] [id number] [place] [address] 81158- 1545 Mar, Bipolar affective disorder, currently depressed, mild F31.31 and Generalized anxiety disorder F41.1 [place] [id number] [place] [address] 76687- 3671 Mar, Borderline personality disorder F60.3 ; Generalized anxiety disorder F41.1 and Bipolar affective disorder, currently depressed, mild F31.31 [place] [id number] [place] [address] 49298- 7088 Feb, Bipolar affective disorder, currently depressed, mild F31.31 and Generalized anxiety disorder F41.1 [place] [id number] [place] [address] 91929- 8252 Feb, Bipolar affective disorder, currently depressed, mild F31.31 ; Generalized anxiety disorder F41.1 and Borderline personality disorder F60.3 [place] [address] [place] [address] 02928- 9672 Feb, Affective disorder F39 and Anxiety state, unspecified F41.1 [place] [address] [place] [address] 66760- 2506 Jan, Affective disorder F39 and Anxiety state, unspecified F41.1 IMMUNIZATIONS No Known Immunizations SOCIAL HISTORY Never Assessed REASON FOR VISIT F/U, Depression and anxiety. PLAN OF CARE Activity Details Follow Up 1 Week Reason:depression and anxiety VITAL SIGNS MEDICATIONS Unknown Medications RESULTS No Results PROCEDURES Procedure Date Ordered Result Body Site Psychotherapy, patient &/family, 30 minutes, established patient Apr 19, 2017 INSTRUCTIONS MEDICATIONS ADMINISTERED No Known Medications [...] keren/psychosis August 2015 Hospitalization History [facility] for psychosis/keren July 2015 Hospitalization History tachycardia and had heart monitor, observation 2011
[2017-11-16] MEDS ORDERED: LORazepam INJ 2 MG/ML (ATIVAN) VIAL ONE (17:37)
[2017-11-16] MEDS ORDERED: LORazepam INJ 2 MG/ML (ATIVAN) VIAL IM ONE (17:45)
[2017-11-16 17:57] LABS: BASOPHILS % (AUTO) 0 % (0-10); EOSINOPHILS # (AUTO) 0.1 10^3/uL (0.0-0.3); EOSINOPHILS % (AUTO) 1 % (0-10); HEMATOCRIT 41 % (35-52); HEMOGLOBIN 14.7 G/DL (11.5-16.0); LYMPHOCYTES % (AUTO) 19 % (12-44); MEAN CORPUSCULAR HEMOGLOBIN 32 PG (25-34); MEAN CORPUSCULAR HGB CONC 36 G/DL (32-36); MEAN CORPUSCULAR VOLUME 90 FL (80-99); MONOCYTES # (AUTO) 1.2 X 10^3 (0.0-1.0); MONOCYTES % (AUTO) 11 % (0-12); NEUTROPHILS # (AUTO) 7.4 X 10^3 (1.8-7.8); NEUTROPHILS % (AUTO) 69 % (42-75); PLATELET COUNT 247 10^3/uL (130-400); RED CELL DISTRIBUTION WIDTH 13.2 % (10.0-14.5); WHITE BLOOD COUNT 10.7 10^3/uL (4.3-11.0)
[2017-11-16 18:18] LABS: ALANINE AMINOTRANSFERASE 23 U/L (0-55); ALBUMIN 4.7 GM/DL (3.2-4.5); ALKALINE PHOSPHATASE 69 U/L (40-136); BILIRUBIN,TOTAL 0.7 MG/DL (0.1-1.0); BUN/CREATININE RATIO 17; CALCIUM 10.3 MG/DL (8.5-10.1); CARBON DIOXIDE 12 MMOL/L (21-32); CHLORIDE 106 MMOL/L (98-107); CREATININE SERUM 1.29 MG/DL (0.60-1.30); GFR ESTIMATED 43; GLUCOSE 122 MG/DL (70-105); POTASSIUM 3.9 MMOL/L (3.6-5.0); SALICYLATE < 5.0 MG/DL (5.0-20.0); SODIUM 139 MMOL/L (135-145); TOTAL PROTEIN 7.9 GM/DL (6.4-8.2)
[2017-11-16 18:21] LABS: ACETAMINOPHEN < 10 UG/ML (10-30)
[2017-11-16 18:30] LABS: CLARITY,URINE CLEAR; COLOR,URINE YELLOW; GLUCOSE, URINE (UA) NEGATIVE (NEGATIVE); KETONES,URINE 1+ (NEGATIVE); LEUKOCYTE ESTERASE ,URINE 1+ (NEGATIVE); NITRITE,URINE NEGATIVE (NEGATIVE); PH,URINE 5 (5-9); PROTEIN,URINE 2+ (NEGATIVE); UROBILINOGEN,URINE 4 MG/DL (NORMAL)
--- NOTE | 2017-11-16 18:34 | ED Psychosocial ---
General Chief Complaint: Psych/Social Disorder Stated Complaint: PHYSICAL Nursing Triage Note: PT DRAGGED TO ED BY 2 BLUN[employer] LO[employer] DEPT PT IN SHACKLE WRISTS AND ANKLES, PT YELLING , COMBATIVE TO STAFF, BELLIGERANT, NOT COOPERATIVE, CONFUSED. PT HERE FOR MEDICAL CLEARANCE, PT HAS BEEN SEEN BY [facility] FOR SCREENING TO GO TO [facility]. Source: police Exam Limitations: no limitations History of Present Illness Date Seen by Provider: Nov 16, 2017 Time Seen by Provider: 17:45 Initial Comments to ER police custody in custody of [facility] Sheriff yelling and screaming. She was apparently arrested earlier this morning and became belligerent around noon at alf. [facility] CECELIA has already screened her and is planning on getting the patient admitted to [facility].they are awaiting bed assignment at this time. She is here for medical clearance and will be either taken directly from here to the [facility] or back to alf then to the [facility]. Timing/Duration: this morning Severity: moderate Associated Symptoms: impaired concentration Allergies and Home Medications Allergies Coded Allergies: acetaminophen (Verified Allergy, Unknown, 03/24/12) influenza virus vaccine, specific (Verified Allergy, Unknown, 03/24/12) levofloxacin (Verified Allergy, Unknown, 03/24/12) propoxyphene napsylate (Verified Allergy, Unknown, 03/24/12) Home Medications Duloxetine HCl 60 Mg Capsule.dr, 60 MG PO DAILY, (Reported) Estradiol 1 Each Patch.tdwk, 1 EACH TD Weekly, (Reported) Hydroxyzine HCl 25 Mg Tablet, 25 MG PO TID, (Reported) Lisinopril 10 Mg Tablet, 10 MG PO DAILY, (Reported) Lake Carbonate 300 Mg Tablet, 300 MG PO BID, (Reported) Loratadine 10 Mg Tablet, 10 MG PO DAILY, (Reported) Lurasidone HCl 60 Mg Tablet, 60 MG PO HS, (Reported) Pantoprazole Sodium 40 Mg Tablet.dr, 40 MG PO DAILY, (Reported) Pentosan Polysulfate Sodium 100 Mg Capsule, 100 MG PO TID, (Reported) Pregabalin 200 Mg Capsule, 200 MG PO TID, (Reported) Propranolol HCl 10 Mg Tablet, 10 MG PO BID, (Reported) Sucralfate 1 Gm Tablet, 1 GM PO QIDACHS, (Reported) Tizanidine HCl 4 Mg Tablet, 4 MG PO TID, (Reported) Tramadol HCl 50 Mg Tablet, 50 MG PO TID PRN for PAIN-MILD TO MODERATE, (Reported ) Zolpidem Tartrate 5 Mg Tablet, 5 MG PO HS PRN for SLEEP, (Reported) Patient Home Medication List Home Medication List Reviewed: Yes Constitutional: see HPI EENTM: see HPI Respiratory: no symptoms reported Cardiovascular: no symptoms reported Genitourinary: no symptoms reported Musculoskeletal: no symptoms reported Skin: no symptoms reported Psychiatric/Neurological: See HPI Past Bsdypzh-Mkewub-Isrmnm Hx Patient Social History Recreational Drug Use: No Type Used: Cigarettes Recent Foreign Travel: No Contact w/Someone Who Travel: No Recent Infectious Disease Expo: No Recent Hopitalizations: No Physical Abuse: No Sexual Abuse: No Seasonal Allergies Seasonal Allergies: Yes Past Medical History Gallbladder, Hysterectomy Asthma Hypertension Neuropathy Reproductive Disorders: No Gastroesophageal Reflux, Diverticulosis, Polyps, Ulcer Arthritis, Fibromyalgia, Chronic Back Pain, Spasms Hypothyroidsim Anxiety, PTSD, Bipolar Nursing Suicide Risk Score: 0 Physical Exam Vital Signs Vital Signs - First Documented 11/16/17 17:21 Temp 97.5 Pulse 133 Resp 20 B/P (MAP) 102/74 (83) Pulse Ox 98 Capillary Refill : Less Than 3 Seconds General Appearance: WD/WN, no apparent distress, other (she is in wrist and ankle shackles, and orange jumpsuit. She is yelling and screaming and belligerent. Spitting at staff and attempting to bite staff. She was given 20 mg of intramuscular Geodon and 2 mg of intramuscular Ativan shortly after arrival to ER. She is yelling about being "a general" she also has repetitively stating "I'm having an experience!") HEENT: PERRL/EOMI, normal ENT inspection Neck: non-tender, full range of motion Respiratory: normal breath sounds, no respiratory distress, no accessory muscle use Cardiovascular: no murmur, tachycardia Gastrointestinal: normal bowel sounds, non tender, soft Extremities: normal range of motion, non-tender Neurologic/Psychiatric: alert Appearance/Memory: disheveled, impaired insight, impaired recent memory, impaired remote memory Behavior/Eye Contact: increased rate of speech, belligerent, compulsive, uncooperative Thoughts/Hallucinations: delusions, flight of ideas, grandiose Skin: normal color, warm/dry Progress/Results/Core Measures Results/Orders Lab Results Laboratory Tests Test 11/16/17 17:47 11/16/17 18:20 Range/Units White Blood Count 10.7 4.3-11.0 10^3/uL Red Blood Count 4.60 4.35-5.85 10^6/uL Hemoglobin 14.7 11.5-16.0 G/DL Hematocrit 41 35-52 % Mean Corpuscular Volume 90 80-99 FL Mean Corpuscular Hemoglobin 32 25-34 PG Mean Corpuscular Hemoglobin Concent 36 32-36 G/DL Red Cell Distribution Width 13.2 10.0-14.5 % Platelet Count 247 130-400 10^3/uL Mean Platelet Volume 10.0 7.4-10.4 FL Neutrophils (%) (Auto) 69 42-75 % Lymphocytes (%) (Auto) 19 12-44 % Monocytes (%) (Auto) 11 0-12 % Eosinophils (%) (Auto) 1 0-10 % Basophils (%) (Auto) 0 0-10 % Neutrophils # (Auto) 7.4 1.8-7.8 X 10^3 Lymphocytes # (Auto) 2.0 1.0-4.0 X 10^3 Monocytes # (Auto) 1.2 H 0.0-1.0 X 10^3 Eosinophils # (Auto) 0.1 0.0-0.3 10^3/uL Basophils # (Auto) 0.0 0.0-0.1 10^3/uL Sodium Level 139 135-145 MMOL/L Potassium Level 3.9 3.6-5.0 MMOL/L Chloride Level 106 98-107 MMOL/L Carbon Dioxide Level 12 L 21-32 MMOL/L Anion Gap 21 H 5-14 MMOL/L Blood Urea Nitrogen 22 H 7-18 MG/DL Creatinine 1.29 0.60-1.30 MG/DL Estimat Glomerular Filtration Rate 43 BUN/Creatinine Ratio 17 Glucose Level 122 H 70-105 MG/DL Calcium Level 10.3 H 8.5-10.1 MG/DL Total Bilirubin 0.7 0.1-1.0 MG/DL Aspartate Amino Transf (AST/SGOT) 36 H 5-34 U/L Alanine Aminotransferase (ALT/SGPT) 23 0-55 U/L Alkaline Phosphatase 69 40-136 U/L Total Protein 7.9 6.4-8.2 GM/DL Albumin 4.7 H 3.2-4.5 GM/DL Salicylates Level < 5.0 L 5.0-20.0 MG/DL Acetaminophen Level < 10 L 10-30 UG/ML Serum Alcohol < 10 <10 MG/DL My Orders Orders - SAMANTHA HUYNH APRN Cbc With Automated Diff (11/16/17 17:42) Comprehensive Metabolic Panel (11/16/17 17:42) Acetaminophen (11/16/17 17:42) Salicylate (11/16/17 17:42) Alcohol (11/16/17 17:42) Ua Culture If Indicated (11/16/17 17:42) Drug Screen Stat (Urine) (11/16/17 17:42) Ekg Tracing (11/16/17 17:42) Ziprasidone Injection (Geodon Injection) (11/16/17 17:45) Lorazepam Injection (Ativan Injection) (11/16/17 17:45) Vital Signs/I&O 11/16/17 17:21 Temp 97.5 Pulse 133 Resp 20 B/P (MAP) 102/74 (83) Pulse Ox 98 Blood Pressure Mean: 83 Departure Communication (Admissions) 1833, she is still alert but much more calm, cooperative, and easily redirectable. Pit Inspector Department staff remains at bedside. Impression Primary Impression: Acute psychosis Disposition: Condition: Stable Departure-Patient Inst. Decision time for Depature: 18:33 Referrals: DANNY GONG MD (PCP/Family) Primary Care Physician Patient Instructions: Acute Psychosis (DC) SAMANTHA HUYNH APRN Nov 16, 2017 18:34
[2017-11-16 18:39] LABS: BACTERIA,URINE FEW /HPF; RBC,URINE 0-2 /HPF; SQUAMOUS EPITHELIAL CELL,UR 0-2 /HPF
[2017-11-16 18:40] LABS: AMORPHOUS SEDIMENT,UR MOD AMOR URATES /LPF; HYALINE CASTS, URINE 25-50 /LPF
[2017-11-16 18:41] LABS: BILIRUBIN,URINE 1+ (NEGATIVE)
[2017-11-16 18:43] LABS: AMPHETAMINE SCREEN, URINE NEGATIVE (NEGATIVE); BARBITURATE SCREEN URINE NEGATIVE (NEGATIVE); BENZODIAZEPINES SCREEN URINE NEGATIVE (NEGATIVE); CANNABINOID SCREEN, URINE NEGATIVE (NEGATIVE); COCAINE SCREEN URINE NEGATIVE (NEGATIVE); METHADONE STAT NEGATIVE (NEGATIVE); METHAMPHETAMINE SCREEN URINE S NEGATIVE (NEGATIVE); OPIATE SCREEN URINE NEGATIVE (NEGATIVE); OXYCODONE STAT NEGATIVE (NEGATIVE); PROPOXYPHENE STAT NEGATIVE (NEGATIVE); TRICYCLIC ANTIDEPRESSANTS SCRE NEGATIVE (NEGATIVE)
[2017-11-16 19:07] VITALS: BP 100/64
== END 2017-11-16 19:07 | disposition home or self-care (01) ==
LOC: EDUNIT# 17:21 → ER 17:22
DX: F29 Unspecified psychosis not due to a substance or known physiological condition (principal); J45.909 Unspecified asthma, uncomplicated; I10 Essential (primary) hypertension; K21.9 Gastro-esophageal reflux disease without esophagitis; E03.9 Hypothyroidism, unspecified; F41.9 Anxiety disorder, unspecified; F43.10 Post-traumatic stress disorder, unspecified; F31.9 Bipolar disorder, unspecified; Z87.19 Personal history of other diseases of the digestive system; Z86.010 Personal history of colon polyps; Z90.710 Acquired absence of both cervix and uterus; Z88.8 Allergy status to other drugs, medicaments and biological substances; Z88.7 Allergy status to serum and vaccine; Z88.1 Allergy status to other antibiotic agents
CPT/HCPCS: 36415; 51701; 80053; 80306; 80320; 80329; 81000; 85025; 87088; 93005; 96372

== ENCOUNTER 2018-01-18 04:17 | Emergency (ER) | payer MEDICAID ==
[~2018-01-18] VITALS: Ht 172.7 cm; Wt 74.8 kg
--- OUTSIDE RECORDS SUMMARY | 2018-01-18 04:40 | XMS REPORT ---
Author Author RAQUEL LOAIZA Organization [facility] Address [address] [place] [address] Care Team Providers Care Director Of Catering Name Role Phone RAQUEL LOAIZA Unavailable PROBLEMS Type Condition ICD9-CM Code KPL22-NH Code Onset Dates Condition Status SNOMED Code Problem Bipolar disorder, current episode depressed, moderate F31.32 Active 642593908 Problem Generalized anxiety disorder F41.1 Active 33747876 Problem Borderline personality disorder F60.3 Active 36887803 Problem Bipolar affective disorder, currently depressed, mild F31.31 Active [id number] ALLERGIES No Information ENCOUNTERS Encounter Location Date Diagnosis [place] [id number] [place] [address] 54396- 1259 Dec, [facility] [id number] [place] [address] 32180- 3611 Dec, [place] [id number] [place] [address] 79866- 3601 Nov, [place] [id number] [place] [address] 15618- 3767 Sep, Bipolar affective disorder, currently depressed, mild F31.31 ; Generalized anxiety disorder F41.1 ; Borderline personality disorder F60.3 and High risk medication use Z79.899 [facility] [id number] [place] [address] 63299- 7155 Aug, Bipolar disorder, current episode depressed, moderate F31.32 and Generalized anxiety disorder F41.1 [facility] [id number] [place] [address] 77435- 3194 Aug, Bipolar disorder, current episode depressed, moderate F31.32 and Generalized anxiety disorder F41.1 [place] [id number] [place] [address] 97286- 7158 Aug, Bipolar disorder, current episode depressed, moderate F31.32 and Generalized anxiety disorder F41.1 [place] [address] [place] [address] 89133- 5427 Jul, Bipolar disorder, current episode depressed, moderate F31.32 and Generalized anxiety disorder F41.1 [place] [address] [place] [address] 26242- 4871 Jul, Bipolar disorder, current episode depressed, moderate F31.32 and Generalized anxiety disorder F41.1 [place] [address] [place] [address] 94051- 4112 Jun, Bipolar affective disorder, currently depressed, mild F31.31 ; Generalized anxiety disorder F41.1 and Borderline personality disorder F60.3 [place] [address] [place] [address] 68629- 3109 May, Bipolar disorder, current episode depressed, moderate F31.32 and Generalized anxiety disorder F41.1 [place] [address] [place] [address] 88592- 4569 May, Bipolar disorder, current episode depressed, moderate F31.32 and Generalized anxiety disorder F41.1 [place] [address] [place] [address] 41880- 0607 Apr, Bipolar disorder, current episode depressed, moderate F31.32 and Generalized anxiety disorder F41.1 [place] [address] [place] [address] 97878- 8981 Apr, Bipolar affective disorder, currently depressed, mild F31.31 and Generalized anxiety disorder F41.1 [place] [address] [place] [address] 86725- 7708 Apr, Bipolar affective disorder, currently depressed, mild F31.31 and Generalized anxiety disorder F41.1 [place] [address] [address] 4407 Apr, Bipolar affective disorder, currently depressed, mild F31.31 ; Generalized anxiety disorder F41.1 and Borderline personality disorder F60.3 [place] [address] [place] [address] 12689- 6616 Mar, Bipolar affective disorder, currently depressed, mild F31.31 and Generalized anxiety disorder F41.1 [facility] [id number] [place] [address] 93174- 2994 Mar, Bipolar affective disorder, currently depressed, mild F31.31 and Generalized anxiety disorder F41.1 [place] [id number] [place] [address] 38184- 1390 Mar, Bipolar affective disorder, currently depressed, mild F31.31 and Generalized anxiety disorder F41.1 [place] [id number] [place] [address] 91013- 5736 Mar, Bipolar affective disorder, currently depressed, mild F31.31 and Generalized anxiety disorder F41.1 [place] [id number] [place] [address] 37445- 8314 Mar, Borderline personality disorder F60.3 ; Generalized anxiety disorder F41.1 and Bipolar affective disorder, currently depressed, mild F31.31 [place] [address] [place] [address] 66169- 4615 Feb, Bipolar affective disorder, currently depressed, mild F31.31 and Generalized anxiety disorder F41.1 [place] [id number] [place] [address] 62474- 0063 Feb, Bipolar affective disorder, currently depressed, mild F31.31 ; Generalized anxiety disorder F41.1 and Borderline personality disorder F60.3 [place] [id number] [place] [address] 31403- 8474 Feb, Affective disorder F39 and Anxiety state, unspecified F41.1 [place] [id number] [place] [address] 11128- 5934 Jan, Affective disorder F39 and Anxiety state, unspecified F41.1 IMMUNIZATIONS No Known Immunizations SOCIAL HISTORY Never Assessed REASON FOR VISIT f/u, Depression and anxiety. 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
--- OUTSIDE RECORDS SUMMARY | 2018-01-18 04:40 | XMS REPORT ---
Author Author RAQUEL LOAIZA Organization [facility] Address [address] [place] [address] Care Team Providers Care Housing Case Manager Name Role Phone RAQUEL LOAIZA Unavailable PROBLEMS Type Condition ICD9-CM Code TSY14-GM Code Onset Dates Condition Status SNOMED Code Problem Bipolar disorder, current episode depressed, moderate F31.32 Active 269016771 Problem Generalized anxiety disorder F41.1 Active 12597648 Problem Borderline personality disorder F60.3 Active 59050593 Problem Bipolar affective disorder, currently depressed, mild F31.31 Active [id number] ALLERGIES No Information ENCOUNTERS Encounter Location Date Diagnosis [place] [id number] [place] [address] 00146- 7485 Dec, [facility] [id number] [place] [address] 61020- 0190 Dec, [place] [id number] [place] [address] 00183- 4383 Nov, [place] [id number] [place] [address] 87360- 5313 Sep, Bipolar affective disorder, currently depressed, mild F31.31 ; Generalized anxiety disorder F41.1 ; Borderline personality disorder F60.3 and High risk medication use Z79.899 [facility] [address] [place] [address] 53802- 0580 Aug, Bipolar disorder, current episode depressed, moderate F31.32 and Generalized anxiety disorder F41.1 [facility] [id number] [place] [address] 45668- 6197 Aug, Bipolar disorder, current episode depressed, moderate F31.32 and Generalized anxiety disorder F41.1 [place] [id number] [place] [address] 39400- 2670 Aug, Bipolar disorder, current episode depressed, moderate F31.32 and Generalized anxiety disorder F41.1 [place] [address] [place] [address] 64256- 4214 Jul, Bipolar disorder, current episode depressed, moderate F31.32 and Generalized anxiety disorder F41.1 [place] [address] [place] [address] 10194- 7982 Jul, Bipolar disorder, current episode depressed, moderate F31.32 and Generalized anxiety disorder F41.1 [place] [address] [place] [address] 39722- 6606 Jun, Bipolar affective disorder, currently depressed, mild F31.31 ; Generalized anxiety disorder F41.1 and Borderline personality disorder F60.3 [place] [address] [place] [address] 81384- 6356 May, Bipolar disorder, current episode depressed, moderate F31.32 and Generalized anxiety disorder F41.1 [place] [address] [place] [address] 20488- 5959 May, Bipolar disorder, current episode depressed, moderate F31.32 and Generalized anxiety disorder F41.1 [place] [address] [place] [address] 81570- 2614 Apr, Bipolar disorder, current episode depressed, moderate F31.32 and Generalized anxiety disorder F41.1 [place] [address] [place] [address] 08701- 6524 Apr, Bipolar affective disorder, currently depressed, mild F31.31 and Generalized anxiety disorder F41.1 [place] [address] [place] [address] 64402- 1666 Apr, Bipolar affective disorder, currently depressed, mild F31.31 and Generalized anxiety disorder F41.1 [place] [address], [place] [address]- 5561 Apr, Bipolar affective disorder, currently depressed, mild F31.31 ; Generalized anxiety disorder F41.1 and Borderline personality disorder F60.3 [place] [address] [place] [address] 78228- 4698 Mar, Bipolar affective disorder, currently depressed, mild F31.31 and Generalized anxiety disorder F41.1 [facility] [id number] [place] [address] 30532- 6074 Mar, Bipolar affective disorder, currently depressed, mild F31.31 and Generalized anxiety disorder F41.1 [place] [id number] [place] [address] 36604- 3981 Mar, Bipolar affective disorder, currently depressed, mild F31.31 and Generalized anxiety disorder F41.1 [place] [id number] [place] [address] 89759- 0198 Mar, Bipolar affective disorder, currently depressed, mild F31.31 and Generalized anxiety disorder F41.1 [place] [id number] [place] [address] 05985- 7269 Mar, Borderline personality disorder F60.3 ; Generalized anxiety disorder F41.1 and Bipolar affective disorder, currently depressed, mild F31.31 [place] [address] [place] [address] 59819- 9215 Feb, Bipolar affective disorder, currently depressed, mild F31.31 and Generalized anxiety disorder F41.1 [place] [id number] [place] [address] 12647- 7362 Feb, Bipolar affective disorder, currently depressed, mild F31.31 ; Generalized anxiety disorder F41.1 and Borderline personality disorder F60.3 [place] [address] [place] [address] 00629- 2821 Feb, Affective disorder F39 and Anxiety state, unspecified F41.1 [place] [address] [place] [address] 24745- 5161 Jan, Affective disorder F39 and Anxiety state, unspecified F41.1 IMMUNIZATIONS No Known Immunizations SOCIAL HISTORY Never Assessed REASON FOR VISIT f/u, Anxiety and depression. PLAN OF CARE Activity Details Follow Up Next available Reason:anxiety and depreson VITAL SIGNS MEDICATIONS Unknown Medications RESULTS No Results PROCEDURES Procedure Date Ordered Result Body Site Psychotherapy, patient &/family, 45 minutes, established patient September 06, 2017 INSTRUCTIONS MEDICATIONS ADMINISTERED No Known Medications [...] keren/psychosis August 2015 Hospitalization History [facility] for psychosis/keren July 2015 Hospitalization History tachycardia and had heart monitor, observation 2011
--- OUTSIDE RECORDS SUMMARY | 2018-01-18 04:40 | XMS REPORT ---
Author Author RAQUEL LOAIZA Organization [facility] Address [address] [place] [address] Care Team Providers Care Furnace Liner Name Role Phone RAQUEL LOAIZA Unavailable PROBLEMS Type Condition ICD9-CM Code PEI28-LT Code Onset Dates Condition Status SNOMED Code Problem Bipolar disorder, current episode depressed, moderate F31.32 Active 573140619 Problem Generalized anxiety disorder F41.1 Active 82777824 Problem Borderline personality disorder F60.3 Active 69852686 Problem Bipolar affective disorder, currently depressed, mild F31.31 Active 220661836 ALLERGIES No Information ENCOUNTERS Encounter Location Date Diagnosis [place] [id number] [place] [address] 96166- 8757 Dec, [facility] [id number] [place] [address] 29180- 2844 Dec, [place] [id number] [place] [address] 33412- 7137 Nov, [place] [id number] [place] [address] 89693- 3604 Sep, Bipolar affective disorder, currently depressed, mild F31.31 ; Generalized anxiety disorder F41.1 ; Borderline personality disorder F60.3 and High risk medication use Z79.899 [facility] [address] [place] [address] 09814- 5707 Aug, Bipolar disorder, current episode depressed, moderate F31.32 and Generalized anxiety disorder F41.1 [facility] [id number] [place] [address] 63443- 2441 Aug, Bipolar disorder, current episode depressed, moderate F31.32 and Generalized anxiety disorder F41.1 [place] [id number] [place] [address] 57192- 3479 Aug, Bipolar disorder, current episode depressed, moderate F31.32 and Generalized anxiety disorder F41.1 [place] [address] [place] [address] 61782- 5641 Jul, Bipolar disorder, current episode depressed, moderate F31.32 and Generalized anxiety disorder F41.1 [place] [address] [place] [address] 71577- 8183 Jul, Bipolar disorder, current episode depressed, moderate F31.32 and Generalized anxiety disorder F41.1 [place] [address] [place] [address] 54423- 3819 Jun, Bipolar affective disorder, currently depressed, mild F31.31 ; Generalized anxiety disorder F41.1 and Borderline personality disorder F60.3 [place] [address] [place] [address] 03634- 1536 May, Bipolar disorder, current episode depressed, moderate F31.32 and Generalized anxiety disorder F41.1 [place] [address] [place] [address] 55918- 5062 May, Bipolar disorder, current episode depressed, moderate F31.32 and Generalized anxiety disorder F41.1 [place] [address] [place] [address] 77119- 4715 Apr, Bipolar disorder, current episode depressed, moderate F31.32 and Generalized anxiety disorder F41.1 [place] [address] [place] [address] 55011- 1777 Apr, Bipolar affective disorder, currently depressed, mild F31.31 and Generalized anxiety disorder F41.1 [place] [address] [place] [address] 12527- 8888 Apr, Bipolar affective disorder, currently depressed, mild F31.31 and Generalized anxiety disorder F41.1 [place] [address] [address]- 2911 Apr, Bipolar affective disorder, currently depressed, mild F31.31 ; Generalized anxiety disorder F41.1 and Borderline personality disorder F60.3 [place] [address] [place] [address] 25460- 5159 Mar, Bipolar affective disorder, currently depressed, mild F31.31 and Generalized anxiety disorder F41.1 [facility] [id number] [place] [address] 43023- 7894 Mar, Bipolar affective disorder, currently depressed, mild F31.31 and Generalized anxiety disorder F41.1 [place] [id number] [place] [address] 90683- 7689 Mar, Bipolar affective disorder, currently depressed, mild F31.31 and Generalized anxiety disorder F41.1 [place] [id number] [place] [address] 41875- 8250 Mar, Bipolar affective disorder, currently depressed, mild F31.31 and Generalized anxiety disorder F41.1 [place] [id number] [place] [address] 10745- 7292 Mar, Borderline personality disorder F60.3 ; Generalized anxiety disorder F41.1 and Bipolar affective disorder, currently depressed, mild F31.31 [place] [address] [place] [address] 67683- 8767 Feb, Bipolar affective disorder, currently depressed, mild F31.31 and Generalized anxiety disorder F41.1 [place] [id number] [place] [address] 06200- 9735 Feb, Bipolar affective disorder, currently depressed, mild F31.31 ; Generalized anxiety disorder F41.1 and Borderline personality disorder F60.3 [place] [address] [place] [address] 85388- 5750 Feb, Affective disorder F39 and Anxiety state, unspecified F41.1 [place] [address] [place] [address] 88358- 6877 Jan, Affective disorder F39 and Anxiety state, unspecified F41.1 IMMUNIZATIONS No Known Immunizations SOCIAL HISTORY Never Assessed REASON FOR VISIT f/u, Depression and anxiety. PLAN OF CARE Activity Details Follow Up 1 Week Reason:depression and anxeity VITAL SIGNS MEDICATIONS Unknown Medications RESULTS No Results PROCEDURES Procedure Date Ordered Result Body Site Psychotherapy, patient &/family, 45 minutes, established patient August 16, 2017 INSTRUCTIONS MEDICATIONS ADMINISTERED No Known Medications [...] keren/psychosis August 2015 Hospitalization History [facility] for psychosis/keren July 2015 Hospitalization History tachycardia and had heart monitor, observation 2011
--- OUTSIDE RECORDS SUMMARY | 2018-01-18 04:40 | XMS REPORT ---
Author Author RAQUEL LOAIZA Organization [facility] Address [address] [place] [address] Care Team Providers Care Bar Roller Name Role Phone RAQUEL LOAIZA Unavailable PROBLEMS Type Condition ICD9-CM Code NDF10-HP Code Onset Dates Condition Status SNOMED Code Problem Bipolar disorder, current episode depressed, moderate F31.32 Active 326736684 Problem Generalized anxiety disorder F41.1 Active 32612550 Problem Borderline personality disorder F60.3 Active 29921635 Problem Bipolar affective disorder, currently depressed, mild F31.31 Active 391396916 ALLERGIES No Information ENCOUNTERS Encounter Location Date Diagnosis [place] [id number] [place] [address] 48534- 2869 Dec, [facility] [id number] [place] [address] 82838- 5605 Dec, [place] [id number] [place] [address] 98392- 0173 Nov, [place] [id number] [place] [address] 12629- 5180 Sep, Bipolar affective disorder, currently depressed, mild F31.31 ; Generalized anxiety disorder F41.1 ; Borderline personality disorder F60.3 and High risk medication use Z79.899 [facility] [address] [place] [address] 64461- 6592 Aug, Bipolar disorder, current episode depressed, moderate F31.32 and Generalized anxiety disorder F41.1 [facility] [id number] [place] [address] 82304- 0613 Aug, Bipolar disorder, current episode depressed, moderate F31.32 and Generalized anxiety disorder F41.1 [place] [id number] [place] [address] 42700- 4755 Aug, Bipolar disorder, current episode depressed, moderate F31.32 and Generalized anxiety disorder F41.1 [place] [address] [place] [address] 64349- 4925 Jul, Bipolar disorder, current episode depressed, moderate F31.32 and Generalized anxiety disorder F41.1 [place] [address] [place] [address] 11233- 9229 Jul, Bipolar disorder, current episode depressed, moderate F31.32 and Generalized anxiety disorder F41.1 [place] [address] [place] [address] 37770- 7162 Jun, Bipolar affective disorder, currently depressed, mild F31.31 ; Generalized anxiety disorder F41.1 and Borderline personality disorder F60.3 [place] [address] [place] [address] 36498- 0903 May, Bipolar disorder, current episode depressed, moderate F31.32 and Generalized anxiety disorder F41.1 [place] [address] [place] [address] 67600- 6430 May, Bipolar disorder, current episode depressed, moderate F31.32 and Generalized anxiety disorder F41.1 [place] [address] [place] [address] 71667- 3060 Apr, Bipolar disorder, current episode depressed, moderate F31.32 and Generalized anxiety disorder F41.1 [place] [address] [place] [address] 22933- 8976 Apr, Bipolar affective disorder, currently depressed, mild F31.31 and Generalized anxiety disorder F41.1 [place] [address] [place] [address] 44474- 1671 Apr, Bipolar affective disorder, currently depressed, mild F31.31 and Generalized anxiety disorder F41.1 [place] [address] [address] Apr, Bipolar affective disorder, currently depressed, mild F31.31 ; Generalized anxiety disorder F41.1 and Borderline personality disorder F60.3 [place] [address] [place] [address] 92292- 8260 Mar, Bipolar affective disorder, currently depressed, mild F31.31 and Generalized anxiety disorder F41.1 [facility] [id number] [place] [address] 17132- 7122 Mar, Bipolar affective disorder, currently depressed, mild F31.31 and Generalized anxiety disorder F41.1 [place] [id number] [place] [address] 69022- 0650 Mar, Bipolar affective disorder, currently depressed, mild F31.31 and Generalized anxiety disorder F41.1 [place] [id number] [place] [address] 31107- 5852 Mar, Bipolar affective disorder, currently depressed, mild F31.31 and Generalized anxiety disorder F41.1 [place] [id number] [place] [address] 94096- 1351 Mar, Borderline personality disorder F60.3 ; Generalized anxiety disorder F41.1 and Bipolar affective disorder, currently depressed, mild F31.31 [place] [address] [place] [address] 73071- 8818 Feb, Bipolar affective disorder, currently depressed, mild F31.31 and Generalized anxiety disorder F41.1 [place] [id number] [place] [address] 73586- 3734 Feb, Bipolar affective disorder, currently depressed, mild F31.31 ; Generalized anxiety disorder F41.1 and Borderline personality disorder F60.3 [place] [address] [place] [address] 94392- 1229 Feb, Affective disorder F39 and Anxiety state, unspecified F41.1 [place] [address] [place] [address] 35269- 7096 Jan, Affective disorder F39 and Anxiety state, unspecified F41.1 IMMUNIZATIONS No Known Immunizations SOCIAL HISTORY Never Assessed REASON FOR VISIT f/u, Depression and anxiety. PLAN OF CARE Activity Details Follow Up 1 Week Reason:anxiety and depression VITAL SIGNS MEDICATIONS Unknown Medications RESULTS No Results PROCEDURES Procedure Date Ordered Result Body Site Psychotherapy, patient &/family, 45 minutes, established patient Aug 09, 2017 INSTRUCTIONS MEDICATIONS ADMINISTERED No Known Medications [...] keren/psychosis August 2015 Hospitalization History [facility] for psychosis/keren July 2015 Hospitalization History tachycardia and had heart monitor, observation 2011
--- OUTSIDE RECORDS SUMMARY | 2018-01-18 04:40 | XMS REPORT | Clinical Summary ---
Author Author [facility] Organization [facility] Address Unknown Phone Unavailable Care Team Providers Care Team Otr Truck Driver Name Role Phone Unverified, Unverified Md PCP Unavailable Trace Rodriguez MD Unavailable Unavailable Isreal Langley MD Unavailable Randal Brunson MD Unavailable Source Comments Some departments are not documenting in the electronic medical record. If you do not see the information that you expected, contact Release of Information in the Health Information Management department at [phone] for further assistance in locating additional records.[facility] Allergies Active Allergy Reactions Severity Noted [...] CANCER SCREENING 2005 COLORECTAL CANCER 09/25/2015 SCREENING SHINGLES RECOMBINANT 09/25/2015 VACCINE (1 of 2) INFLUENZA VACCINE 03/14/2018 Results Not on filefrom Last 3 Months
--- OUTSIDE RECORDS SUMMARY | 2018-01-18 04:41 | XMS REPORT ---
Author Author RAQUEL LOAIZA Organization [facility] Address [address] [place] [address] Care Team Providers Care Game Master Name Role Phone RAQUEL LOAIZA Unavailable PROBLEMS Type Condition ICD9-CM Code [id number] Code Onset Dates Condition Status SNOMED Code Problem Bipolar disorder, current episode depressed, moderate F31.32 Active 344936221 Problem Generalized anxiety disorder F41.1 Active 88622346 Problem Borderline personality disorder F60.3 Active 46357490 Problem Bipolar affective disorder, currently depressed, mild F31.31 Active 751260769 ALLERGIES No Information ENCOUNTERS Encounter Location Date Diagnosis [place] [id number] [place] [address] 52588- 9696 Dec, [facility] [id number] [place] [address] 69811- 7379 Nov, [place] [id number] [place] [address] 28503- 0911 Sep, Bipolar affective disorder, currently depressed, mild F31.31 ; Generalized anxiety disorder F41.1 ; Borderline personality disorder F60.3 and High risk medication use Z79.899 [place] [id number] [place] [address] 19512- 3976 Aug, Bipolar disorder, current episode depressed, moderate F31.32 and Generalized anxiety disorder F41.1 [facility] [address] [place] [address] 33023- 6338 Aug, Bipolar disorder, current episode depressed, moderate F31.32 and Generalized anxiety disorder F41.1 [place] [address] [place] [address] 60815- 2307 Aug, Bipolar disorder, current episode depressed, moderate F31.32 and Generalized anxiety disorder F41.1 [facility] [address] [address] 2762 Jul, Bipolar disorder, current episode depressed, moderate F31.32 and Generalized anxiety disorder F41.1 [facility] [address] [place] [address] 74923- 2803 Jul, Bipolar disorder, current episode depressed, moderate F31.32 and Generalized anxiety disorder F41.1 [place] [id number] [place] [address] 61744- 1327 Jun, Bipolar affective disorder, currently depressed, mild F31.31 ; Generalized anxiety disorder F41.1 and Borderline personality disorder F60.3 [place] [id number] [place] [address] 71620- 4774 May, Bipolar disorder, current episode depressed, moderate F31.32 and Generalized anxiety disorder F41.1 [place] [id number] [place] [address] 73623- 5398 May, Bipolar disorder, current episode depressed, moderate F31.32 and Generalized anxiety disorder F41.1 [place] [id number] [place] [address] 17580- 8970 Apr, Bipolar disorder, current episode depressed, moderate F31.32 and Generalized anxiety disorder F41.1 [place] [address] [place] [address] 91903- 3083 Apr, Bipolar affective disorder, currently depressed, mild F31.31 and Generalized anxiety disorder F41.1 [place] [address] [place] [address] 57950- 7392 Apr, Bipolar affective disorder, currently depressed, mild F31.31 and Generalized anxiety disorder F41.1 [place] [address] [place] [address] 78933- 7318 Apr, Bipolar affective disorder, currently depressed, mild F31.31 ; Generalized anxiety disorder F41.1 and Borderline personality disorder F60.3 [place] [id number] [place] [address] 67994- 7677 Mar, Bipolar affective disorder, currently depressed, mild F31.31 and Generalized anxiety disorder F41.1 [place] [id number] [place] [address] 78403- 9619 Mar, Bipolar affective disorder, currently depressed, mild F31.31 and Generalized anxiety disorder F41.1 [place] [id number] [place] [address] 95064- 1495 Mar, Bipolar affective disorder, currently depressed, mild F31.31 and Generalized anxiety disorder F41.1 [place] [id number] [place] [address] 27460- 1667 Mar, Bipolar affective disorder, currently depressed, mild F31.31 and Generalized anxiety disorder F41.1 [place] [id number] [place] [address] 70141- 2606 Mar, Borderline personality disorder F60.3 ; Generalized anxiety disorder F41.1 and Bipolar affective disorder, currently depressed, mild F31.31 [place] [address] [place] [address] 82805- 0194 Feb, Bipolar affective disorder, currently depressed, mild F31.31 and Generalized anxiety disorder F41.1 [place] [address] [place] [address] 14293- 2015 Feb, Bipolar affective disorder, currently depressed, mild F31.31 ; Generalized anxiety disorder F41.1 and Borderline personality disorder F60.3 [place] [address] [place] [address] 76240- 9147 Feb, Affective disorder F39 and Anxiety state, unspecified F41.1 [place] [id number] [place] [address] 24034- 0338 Jan, Affective disorder F39 and Anxiety state, unspecified F41.1 IMMUNIZATIONS No Known Immunizations SOCIAL HISTORY Never Assessed REASON FOR VISIT BH f/u, Depression and anxiety. PLAN OF CARE Activity Details Follow Up Next available Reason:anxiety and depression VITAL SIGNS MEDICATIONS Unknown Medications RESULTS No Results PROCEDURES Procedure Date Ordered Result Body Site Psych diagnostic evaluation w/medical services, established patient May 26, 2017 INSTRUCTIONS MEDICATIONS ADMINISTERED No Known Medications [...] keren/psychosis August 2015 Hospitalization History [facility] for psychosis/keren July 2015 Hospitalization History tachycardia and had heart monitor, observation 2011
--- OUTSIDE RECORDS SUMMARY | 2018-01-18 04:41 | XMS REPORT ---
Author Author RAQUEL LOAIZA Organization [facility] Address [address] [place] [address] Care Team Providers Care C Consultant Name Role Phone RAQUEL LOAIZA Unavailable PROBLEMS Type Condition ICD9-CM Code CYC94-VK Code Onset Dates Condition Status SNOMED Code Problem Bipolar disorder, current episode depressed, moderate F31.32 Active 075695848 Problem Generalized anxiety disorder F41.1 Active 18725886 Problem Borderline personality disorder F60.3 Active 92348039 Problem Bipolar affective disorder, currently depressed, mild F31.31 Active 679228813 ALLERGIES No Information ENCOUNTERS Encounter Location Date Diagnosis [place] [id number] [place] [address] 86280- 5680 Dec, [facility] [id number] [place] [address] 22561- 8099 Dec, [place] [id number] [place] [address] 43233- 7714 Nov, [place] [id number] [place] [address] 98775- 9179 Sep, Bipolar affective disorder, currently depressed, mild F31.31 ; Generalized anxiety disorder F41.1 ; Borderline personality disorder F60.3 and High risk medication use Z79.899 [facility] [address] [place] [address] 63314- 0763 Aug, Bipolar disorder, current episode depressed, moderate F31.32 and Generalized anxiety disorder F41.1 [facility] [id number] [place] [address] 86391- 8155 Aug, Bipolar disorder, current episode depressed, moderate F31.32 and Generalized anxiety disorder F41.1 [place] [id number] [place] [address] 81111- 5296 Aug, Bipolar disorder, current episode depressed, moderate F31.32 and Generalized anxiety disorder F41.1 [place] [address] [place] [address] 64856- 5404 Jul, Bipolar disorder, current episode depressed, moderate F31.32 and Generalized anxiety disorder F41.1 [place] [address] [place] [address] 09851- 5324 Jul, Bipolar disorder, current episode depressed, moderate F31.32 and Generalized anxiety disorder F41.1 [place] [address] [place] [address] 38332- 2975 Jun, Bipolar affective disorder, currently depressed, mild F31.31 ; Generalized anxiety disorder F41.1 and Borderline personality disorder F60.3 [place] [address] [place] [address] 67077- 9807 May, Bipolar disorder, current episode depressed, moderate F31.32 and Generalized anxiety disorder F41.1 [place] [address] [place] [address] 27950- 1068 May, Bipolar disorder, current episode depressed, moderate F31.32 and Generalized anxiety disorder F41.1 [place] [address] [place] [address] 79815- 4643 Apr, Bipolar disorder, current episode depressed, moderate F31.32 and Generalized anxiety disorder F41.1 [place] [address] [place] [address] 20524- 9640 Apr, Bipolar affective disorder, currently depressed, mild F31.31 and Generalized anxiety disorder F41.1 [place] [address] [place] [address] 72495- 4855 Apr, Bipolar affective disorder, currently depressed, mild F31.31 and Generalized anxiety disorder F41.1 [place] [address], [place] [address]- 3502 Apr, Bipolar affective disorder, currently depressed, mild F31.31 ; Generalized anxiety disorder F41.1 and Borderline personality disorder F60.3 [place] [address] [place] [address] 30966- 4751 Mar, Bipolar affective disorder, currently depressed, mild F31.31 and Generalized anxiety disorder F41.1 [facility] [id number] [place] [address] 78709- 6076 Mar, Bipolar affective disorder, currently depressed, mild F31.31 and Generalized anxiety disorder F41.1 [place] [id number] [place] [address] 78019- 0735 Mar, Bipolar affective disorder, currently depressed, mild F31.31 and Generalized anxiety disorder F41.1 [place] [id number] [place] [address] 81846- 8940 Mar, Bipolar affective disorder, currently depressed, mild F31.31 and Generalized anxiety disorder F41.1 [place] [id number] [place] [address] 08341- 9077 Mar, Borderline personality disorder F60.3 ; Generalized anxiety disorder F41.1 and Bipolar affective disorder, currently depressed, mild F31.31 [place] [address] [place] [address] 61203- 3364 Feb, Bipolar affective disorder, currently depressed, mild F31.31 and Generalized anxiety disorder F41.1 [place] [id number] [place] [address] 72212- 5549 Feb, Bipolar affective disorder, currently depressed, mild F31.31 ; Generalized anxiety disorder F41.1 and Borderline personality disorder F60.3 [place] [address] [place] [address] 00915- 4747 Feb, Affective disorder F39 and Anxiety state, unspecified F41.1 [place] [address] [place] [address] 57669- 7536 Jan, Affective disorder F39 and Anxiety state, unspecified F41.1 IMMUNIZATIONS No Known Immunizations SOCIAL HISTORY Never Assessed REASON FOR VISIT f/u, Depression and anxiety. PLAN OF CARE Activity Details Follow Up 1 Week Reason:anxiety and depression VITAL SIGNS MEDICATIONS Unknown Medications RESULTS No Results PROCEDURES Procedure Date Ordered Result Body Site Psychotherapy, patient &/family, 45 minutes, established patient Aug 02, 2017 INSTRUCTIONS MEDICATIONS ADMINISTERED No Known Medications [...] keren/psychosis August 2015 Hospitalization History [facility] for psychosis/keren July 2015 Hospitalization History tachycardia and had heart monitor, observation 2011
--- OUTSIDE RECORDS SUMMARY | 2018-01-18 04:42 | XMS REPORT | Continuity of Care Document ---
Author Author [facility] Organization [facility] Address Unknown Phone Unavailable Care Team Providers Care Fibre Cement Moulder Name Role Phone NO, LOCAL PHYSICIAN PP Unavailable Insurance Providers Payer Name Policy Number Subscriber Name Relationship Medicaid [place] [id number] Sandee Francis Self / Same As Patient Advance Directives Directive Response Recorded Date Advance Directives N 12/02/12 8:17pm Problems No Known Problems or Medical conditions. Family History History Response Recorded Date/Time Hx Family Cancer Y 03/24/12 9:25pm Hx Family Lung Cancer Y mother 03/24/12 9 :25pm Hx Family Cardiac Disorders Y 03/24/12 9: 25pm Hx Family Hypertension Y sister 03/24/12 9:25pm Hx Family Myocardial Infarction Y sister 03/24/12 9:25pm Social History History Response Recorded Date/Time Alcohol Use Denies Use 12/02/12 8:17pm Recreational Drug Use N 12/02/12 8:17pm Allergies, Adverse Reactions, Alerts Allergen Type Severity Reaction Last Updated propoxyphene napsylate Allergy Unknown 03/24/12 acetaminophen Allergy Unknown 03/24/12 Influenza Virus Vacc,Specific Allergy Unknown 03/24/12 Levofloxacin Allergy Unknown 03/24/12 Medications Medication Dose Units Route Sig Qty Days Hydroxyzine HCl (Hydroxyzine 50 Mg Tablet) 1 Each PO QID PRN 20 Ibuprofen (Motrin) 800 Mg PO Q8HR PRN 30 [flexeril] [celebrex] Omeprazole (Prilosec 20 Mg) 20 Mg PO DAILY [savella] Response Recorded Date/Time Status not known Unknown Results No Known Relevant Diagnostic Tests, Laboratory Data and/or Discharge Summary. Procedures Procedure Code Date UPPER GI ENDOSCOPY BIOPSY 29022 03/28/09 CONTINUOUS INVASIVE MECHANICAL VENTILATION <96 CONSEC HRS 96.71 03/24/12 Encounters Encounter Location Date/Time Departed Emergency Room [facility] 6:44pm Discharged Inpatient [facility] 4:30pm
[2018-01-18] MEDS ORDERED: MUPI1OIN6 TP (04:43)
--- NOTE | 2018-01-18 04:43 | ED Integumentary General ---
General Chief Complaint: Lower Extremity Stated Complaint: FOOT PAIN Nursing Triage Note: pt states she walks everywhere thus now blisters on both feet Allergies and Home Medications Allergies Coded Allergies: acetaminophen (Verified Allergy, Unknown, 03/24/12) influenza virus vaccine, specific (Verified Allergy, Unknown, 03/24/12) levofloxacin (Verified Allergy, Unknown, 03/24/12) propoxyphene napsylate (Verified Allergy, Unknown, 03/24/12) Past Faimclt-Xbajtu-Lkmhzz Hx Patient Social History Type Used: Cigarettes Recent Foreign Travel: No Contact w/Someone Who Travel: No Recent Infectious Disease Expo: No Recent Hopitalizations: No Seasonal Allergies Seasonal Allergies: Yes Past Medical History Gallbladder, Hysterectomy Asthma Hypertension Neuropathy Reproductive Disorders: No Gastroesophageal Reflux, Diverticulosis, Polyps, Ulcer Arthritis, Fibromyalgia, Chronic Back Pain, Spasms Hypothyroidsim Anxiety, PTSD, Bipolar Physical Exam Vital Signs Vital Signs - First Documented 01/18/18 04:24 Temp 97.9 Pulse 62 Resp 20 B/P (MAP) 116/86 (96) Pulse Ox 98 O2 Delivery Room Air Capillary Refill : Less Than 3 Seconds Progress/Results/Core Measures Results/Orders Vital Signs/I&O 01/18/18 04:24 Temp 97.9 Pulse 62 Resp 20 B/P (MAP) 116/86 (96) Pulse Ox 98 O2 Delivery Room Air Blood Pressure Mean: 96 Departure Impression Primary Impression: RUPTURED FRICTION BLISTERS BETWEEN TOES 1 & 2 BILATERALLY Disposition: 01 HOME, SELF-CARE Condition: Stable Departure-Patient Inst. Referrals: DANNY GONG MD (PCP/Family) Primary Care Physician Patient Instructions: Blisters Add. Discharge Instructions: DO NOT WEAR FLIP FLOPS WEAR CLEAN COTTON SOCKS AND TENNIS SHOES WHEN YOU ARE WALKING CLEAN WOUNDS TWICE A DAY WITH ANTIBACTERIAL SOAP AND WATER, APPLY ANTIBIOTIC OINTMENT AND FRESH DRESSING TWICE A DAY, UNTIL COMPLETELY HEALED TYLENOL AND MOTRIN NEEDED FOR PAIN FOLLOW UP WITH DR. GONG IN 2-3 DAYS FOR FURTHER CARE All discharge instructions reviewed with patient and/or family. Voiced understanding. Scripts Mupirocin (Mupirocin) 1 Gm Oin.pf.chuy 1 GM TP BID, #22 TUBE Prov: EDILIA MALIK DO 01/18/18 EDILIA MALIK DO Jan 18, 2018 04:43
[2018-01-18 04:48] VITALS: BP 116/86
== END 2018-01-18 05:02 | disposition home or self-care (01) ==
LOC: EDUNIT# 04:17 → ER 04:20
DX: S90.424A Blister (nonthermal), right lesser toe(s), initial encounter (principal); S90.425A Blister (nonthermal), left lesser toe(s), initial encounter; S90.421A Blister (nonthermal), right great toe, initial encounter; S90.422A Blister (nonthermal), left great toe, initial encounter; J45.909 Unspecified asthma, uncomplicated; I10 Essential (primary) hypertension; K21.9 Gastro-esophageal reflux disease without esophagitis; E03.9 Hypothyroidism, unspecified; F41.9 Anxiety disorder, unspecified; F43.10 Post-traumatic stress disorder, unspecified; F31.9 Bipolar disorder, unspecified; Z86.010 Personal history of colon polyps; Z87.19 Personal history of other diseases of the digestive system; Z90.710 Acquired absence of both cervix and uterus; Z88.8 Allergy status to other drugs, medicaments and biological substances; Z88.1 Allergy status to other antibiotic agents; X58.XXXA Exposure to other specified factors, initial encounter; Y93.01 Activity, walking, marching and hiking
CPT/HCPCS: 99282

== ENCOUNTER 2021-12-23 12:12 | Emergency (ER) | payer MEDICAID ==
[~2021-12-23] VITALS: Ht 165 cm; Wt 90.7 kg
[~2021-12-23 12:12] MED LIST changes: -DULO60CA6 PO; +DULO60CA7 PO; -LISI10TA2 PO; +LISI10TA25 PO; +MUPI1OIN6 TP; -PANT40TA3 PO; +PANT40TA52 PO; +TIZA-186 PO; -TIZA4TAB3 PO; -TRAM50TA2 PO; +TRM50T PO
--- NOTE | 2021-12-23 13:17 | ED Cardiac General ---
History of Present Illness General Chief Complaint: Cardiac/General Problems Stated Complaint: HTN Nursing Triage Note: HYPERTENSION FOR THE LAST SEVERAL OF DAYS. FOUND SOME OLD LISINOPRIL 10 MG AND HAS BEEN TAKING THAT WHICH HAS NOT HELPED. PT COMPLAINS OF HEADACHE AND JUST TOOK SOME IBUPROFEN. Source: patient Exam Limitations: no limitations History of Present Illness Date Seen by Provider: Dec 23, 2021 Time Seen by Provider: 13:09 Initial Comments Patient to the ER by private conveyance with her sister and chief complaint for the past 8 days she has been having some dry nonproductive cough, malaise weakness and increased anxiety. She has a lot of baseline anxiety but does not take anything routinely for it. She used to follow with Kaycee Love but has not establish care with a new primary care provider. She used to take lisinopril but about a year ago was told she no longer had to take it because her blood pressure was so good. She is also been experiencing some increased tenderness over the past 6 months and read online that that might be related to high blood pressure so her sister took her blood pressure yesterday and it was high 220 systolic. She took 10 mg of lisinopril and it did not make it go down. She is not having any dysuria, chest pain or history of heart disease. No significant family history she does smoke however. She is diabetic but her blood sugars been running okay. No known history of hyperlipidemia. Allergies and Home Medications Allergies Coded Allergies: acetaminophen (Verified Allergy, Unknown, 03/24/12) influenza virus vaccine, specific (Verified Allergy, Unknown, 03/24/12) levofloxacin (Verified Allergy, Unknown, 03/24/12) propoxyphene napsylate (Verified Allergy, Unknown, 03/24/12) Patient Home Medication List Home Medication List Reviewed: Yes Amlodipine Besylate (Amlodipine Besylate) 5 Mg Tablet, 5 MG PO DAILY Prescribed by: ALFREDO COFFEY on 12/23/21 165 Mupirocin (Mupirocin) 1 Gm Oin.pf.chuy, 1 GM TP BID Prescribed by: EDILIA MALIK on 01/18/18 0647 Review of Systems Review of Systems Constitutional: No chills, No diaphoresis EENTM: No Blurred Vision, No Double Vision Respiratory: Cough; Denies Orthopnea; Shortness of Air Cardiovascular: Denies Chest Pain, Denies Edema, Denies Lightheadedness Gastrointestinal: Denies Abdominal Pain, Denies Constipated, Denies Diarrhea, Denies Difficulty Swallowing, Denies Nausea Genitourinary: Denies Burning, Denies Discharge Musculoskeletal: No back pain, No gout Skin: No pruritus, No rash Psychiatric/Neurological: Denies Headache, Denies Numbness All Other Systems Reviewed Negative Unless Noted: Yes Past Bejwyeq-Atbnqy-Truvda Hx Patient Social History Tobacco Use?: Yes Smoking Status: Current Everyday Smoker Substance use?: No Alcohol Use?: Yes Alcohol type: Beer Alcohol Frequency: Daily Seasonal Allergies Seasonal Allergies: Yes Past Medical History Surgeries: Yes Abdominal, Gallbladder, Hysterectomy, Orthopedic, Tracheostomy Respiratory: Yes (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 GULLIAN BARRE" ? 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 Genitourinary: No Gastrointestinal: Yes Gastroesophageal Reflux, Diverticulosis, Polyps, Hiatal Hernia, Ulcer, Gall Bladder Disease, Irritable Bowel Musculoskeletal: Yes (CHRONIC NECK PAIN WITH CERVICAL FUSION) Arthritis, Fibromyalgia, Chronic Back Pain, Spasms Endocrine: Yes Hypothyroidsim HEENT: No Cancer: No Psychosocial: Yes Anxiety, PTSD, Suicide Attempts, Bipolar, Depression Integumentary: No Blood Disorders: No Physical Exam Vital Signs Vital Signs - First Documented 12/23/21 12:55 Temp 36.4 Pulse 78 Resp 16 B/P (MAP) 208/113 (144) Pulse Ox 96 O2 Delivery Room Air Capillary Refill : Less Than 3 Seconds Height, Weight, BMI Height: 5'8.00" Weight: 165lbs. 0.0oz. [id number]; 33.00 BMI Method:Estimated General Appearance: No Apparent Distress, Anxious, Obese HEENT: PERRL/EOMI, TMs Normal, Normal ENT Inspection, Pharynx Normal, Moist Mucous Membranes Neck: Full Range of Motion, Normal Inspection, Non Tender, Supple Respiratory: Lungs Clear, Normal Breath Sounds, No Accessory Muscle Use, No Respiratory Distress Cardiovascular: Regular Rate, Rhythm, No Edema, Normal Peripheral Pulses Gastrointestinal: Normal Bowel Sounds, Non Tender, Soft Extremity: Normal Capillary Refill, Normal Inspection, No Pedal Edema Neurologic/Psychiatric: Alert, Oriented x3 Skin: Normal Color, Warm/Dry Progress/Results/Core Measures Results/Orders Lab Results Laboratory Tests Test 12/23/21 13:26 12/23/21 14:11 12/23/21 15:40 Range/Units SARS-CoV-2 RNA (RT-PCR) Not Detected Not Detecte White Blood Count 8.3 4.3-11.0 10^3/uL Red Blood Count 4.43 3.80-5.11 10^6/uL Hemoglobin 13.5 11.5-16.0 g/dL Hematocrit 41 35-52 % Mean Corpuscular Volume 92 80-99 fL Mean Corpuscular Hemoglobin 31 25-34 pg Mean Corpuscular Hemoglobin Concent 33 32-36 g/dL Red Cell Distribution Width 13.0 10.0-14.5 % Platelet Count 241 130-400 10^3/uL Mean Platelet Volume 9.2 9.0-12.2 fL Immature Granulocyte % (Auto) 1 % Neutrophils (%) (Auto) 70 42-75 % Lymphocytes (%) (Auto) 23 12-44 % Monocytes (%) (Auto) 4 0-12 % Eosinophils (%) (Auto) 2 0-10 % Basophils (%) (Auto) 1 0-10 % Neutrophils # (Auto) 5.8 1.8-7.8 10^3/uL Lymphocytes # (Auto) 1.9 1.0-4.0 10^3/uL Monocytes # (Auto) 0.4 0.0-1.0 10^3/uL Eosinophils # (Auto) 0.2 0.0-0.3 10^3/uL Basophils # (Auto) 0.1 0.0-0.1 10^3/uL Immature Granulocyte # (Auto) 0.1 0.0-0.1 10^3/uL Sodium Level 134 L 135-145 MMOL/L Potassium Level 3.5 L 3.6-5.0 MMOL/L Chloride Level 99 98-107 MMOL/L Carbon Dioxide Level 24 21-32 MMOL/L Anion Gap 11 5-14 MMOL/L Blood Urea Nitrogen 12 7-18 MG/DL Creatinine 0.88 0.60-1.30 MG/DL Estimat Glomerular Filtration Rate 77 BUN/Creatinine Ratio 14 Glucose Level 183 H 70-105 MG/DL Calcium Level 9.6 8.5-10.1 MG/DL Corrected Calcium 9.6 8.5-10.1 MG/DL Total Bilirubin 0.4 0.1-1.0 MG/DL Aspartate Amino Transf (AST/SGOT) 21 5-34 U/L Alanine Aminotransferase (ALT/SGPT) 23 0-55 U/L Alkaline Phosphatase 94 40-136 U/L C-Reactive Protein High Sensitivity 1.07 H 0.00-0.50 MG/DL Total Protein 7.0 6.4-8.2 GM/DL Albumin 4.0 3.2-4.5 GM/DL Urine Color YELLOW Urine Clarity CLEAR Urine pH 6.0 5-9 Urine Specific Bromide 1.010 L 1.016-1.022 Urine Protein NEGATIVE NEGATIVE Urine Glucose (UA) NEGATIVE NEGATIVE Urine Ketones NEGATIVE NEGATIVE Urine Nitrite NEGATIVE NEGATIVE Urine Bilirubin NEGATIVE NEGATIVE Urine Urobilinogen 0.2 < = 1.0 MG/DL Urine Leukocyte Esterase NEGATIVE NEGATIVE Urine RBC (Auto) 1+ H NEGATIVE Urine RBC NONE /HPF Urine WBC 0-2 /HPF Urine Squamous Epithelial Cells 0-2 /HPF Urine Crystals NONE /LPF Urine Bacteria NEGATIVE /HPF Urine Casts NONE /LPF Urine Mucus NEGATIVE /LPF Urine Culture Indicated NO My Orders Orders - ALFREDO COFFEY 19 Inhouse Test (12/23/21 13:22) Cbc With Automated Diff (12/23/21 13:55) Comprehensive Metabolic Panel (12/23/21 13:55) Hs C Reactive Protein (12/23/21 13:55) Chest 1 View, Ap/Pa Only (12/23/21 13:55) Labetalol Injection (Normodyne Injection (12/23/21 14:00) Ua Culture If Indicated (12/23/21 15:40) Medications Given in ED Current Medications Medications Dose Ordered Sig/Caitlin Route Start Time Stop Time Status Last Admin Dose Admin Labetalol HCl 20 mg ONCE ONCE IV 12/23/21 14:00 12/23/21 14:01 DC 12/23/21 14:14 20 MG Vital Signs/I&O 12/23/21 12:55 Temp 36.4 Pulse 78 Resp 16 B/P (MAP) 208/113 (144) Pulse Ox 96 O2 Delivery Room Air Blood Pressure Mean: 144 Progress Progress Note #1: Time: 14:00 Progress Note Plan to give her the labetalol and see if that brings down her blood pressure. Lisinopril 10 mg not having adequate. Sounds like her blood pressure and tinnitus may be coinciding it over the last 6 months. Her cough has been over the last 8 or 10 days and is not likely caused by the lisinopril that she started 2 days ago. We can put her out on hydrochlorothiazide or amlodipine if her blood pressure responds favorably and her labs are okay. We will get a chest x-ray. COVID swab was negative. Progress Note #2: Time: 16:50 Progress Note Her blood pressure came down nicely and she says she is ready to go. Currently 182/110. He got down to 150s. We will put her on amlodipine 5 mg in addition to her lisinopril Diagnostic Imaging Diagonstic Imaging: Xray Plain Films/CT/US/NM/MRI: chest Comments [facility]. [place], [place] NAME: ELD[facility] REC#: [id number] PT STATUS: REG ER : 1965 PHYSICIAN: ALFREDO COFFEY MD ADMIT DATE: 12/23/21/ER Draft Date of Exam:12/23/21 CHEST 1 VIEW, AP/PA ONLY INDICATION: Hypertension. TIME OF EXAM: 2:09 p.m. COMPARISON: Correlation is made with prior chest 09/01/2015. FINDINGS: The heart size is stable. Lungs are clear. No infiltrates are seen. There is no effusion or pneumothorax. There are postop changes in the lower cervical spine. IMPRESSION: No acute cardiopulmonary process is detected. Dictated on workstation # [id number] Dict: 12/23/21 1411 Trans: 12/23/21 1413 [id number] Interpreted by: DEBORAH GARCIA MD Electronically signed by: Reviewed: Reviewed by Me Departure Impression Primary Impression: HTN (hypertension) Qualified Codes: I10 - Essential (primary) hypertension Disposition: 01 HOME, SELF-CARE Condition: Stable Departure-Patient Inst. Decision time for Depature: 16:51 Referrals: NO,LOCAL PHYSICIAN (PCP/Family) Primary Care Physician Patient Instructions: High Blood Pressure (DC), LOCAL PHYSICIAN LIST Add. Discharge Instructions: May continue taking your lisinopril 10 mg daily. Amlodipine 5 mg daily. Log your blood pressure first thing in the morning while resting 3-5 times a week and take this with you to your next primary care appointment. Return to the ER for chest pain, shortness of air or other worrisome symptoms. All discharge instructions reviewed with patient and/or family. Voiced understanding. Scripts Lisinopril (Lisinopril) 10 Mg Tablet 10 MG PO DAILY for 30 Days, #30 TAB 0 Refills Prov: ALFREDO COFFEY 12/23/21 Amlodipine Besylate (Amlodipine Besylate) 5 Mg Tablet 5 MG PO DAILY for 30 Days, #30 TAB 0 Refills Prov: ALFREDO COFFEY 12/23/21 ALFREDO COFFEY Dec 23, 2021 13:17
[2021-12-23] MEDS ORDERED: LABETALOL HCL 20 MG/4 ML VIAL IV ONE (14:00)
--- NOTE | 2021-12-23 14:14 | Diagnostic Imaging Report ---
INDICATION: Hypertension. TIME OF EXAM: 2:09 p.m. COMPARISON: Correlation is made with prior chest 09/01/2015. FINDINGS: The heart size is stable. Lungs are clear. No infiltrates are seen. There is no effusion or pneumothorax. There are postop changes in the lower cervical spine. IMPRESSION: No acute cardiopulmonary process is detected. Dictated by: Dictated on workstation # [id number]
[2021-12-23 14:16] LABS: BASOPHILS # (AUTO) 0.1 10^3/uL (0.0-0.1); BASOPHILS % (AUTO) 1 % (0-10); EOSINOPHILS # (AUTO) 0.2 10^3/uL (0.0-0.3); EOSINOPHILS % (AUTO) 2 % (0-10); HEMATOCRIT 41 % (35-52); HEMOGLOBIN 13.5 g/dL (11.5-16.0); LYMPHOCYTES # (AUTO) 1.9 10^3/uL (1.0-4.0); LYMPHOCYTES % (AUTO) 23 % (12-44); MEAN CORPUSCULAR HEMOGLOBIN 31 pg (25-34); MEAN CORPUSCULAR HGB CONC 33 g/dL (32-36); MEAN CORPUSCULAR VOLUME 92 fL (80-99); MEAN PLATELET VOLUME 9.2 fL (9.0-12.2); MONOCYTES # (AUTO) 0.4 10^3/uL (0.0-1.0); MONOCYTES % (AUTO) 4 % (0-12); NEUTROPHILS # (AUTO) 5.8 10^3/uL (1.8-7.8); NEUTROPHILS % (AUTO) 70 % (42-75); PLATELET COUNT 241 10^3/uL (130-400); WHITE BLOOD COUNT 8.3 10^3/uL (4.3-11.0)
[2021-12-23 14:31] LABS: POTASSIUM 3.5 MMOL/L (3.6-5.0)
[2021-12-23 14:32] LABS: CALCIUM 9.6 MG/DL (8.5-10.1)
[2021-12-23 14:35] LABS: BILIRUBIN,TOTAL 0.4 MG/DL (0.1-1.0)
[2021-12-23 14:37] LABS: CREATININE SERUM 0.88 MG/DL (0.60-1.30)
[2021-12-23 16:03] LABS: BILIRUBIN,URINE NEGATIVE (NEGATIVE); CLARITY,URINE CLEAR; COLOR,URINE YELLOW; GLUCOSE, URINE (UA) NEGATIVE (NEGATIVE); KETONES,URINE NEGATIVE (NEGATIVE); LEUKOCYTE ESTERASE ,URINE NEGATIVE (NEGATIVE); NITRITE,URINE NEGATIVE (NEGATIVE); PROTEIN,URINE NEGATIVE (NEGATIVE)
[2021-12-23 16:28] LABS: BACTERIA,URINE NEGATIVE /HPF; SQUAMOUS EPITHELIAL CELL,UR 0-2 /HPF; WBC,URINE 0-2 /HPF
[2021-12-23] MEDS ORDERED: AMLO-250 PO (16:52)
[2021-12-23 17:02] VITALS: BP 189/99
[2021-12-23] MEDS ORDERED: LISI10TA25 PO (17:02)
== END 2021-12-23 17:02 | disposition home or self-care (01) ==
LOC: EDUNIT# 12:12 → ER 12:14
DX: I10 Essential (primary) hypertension (principal); E11.9 Type 2 diabetes mellitus without complications; F17.200 Nicotine dependence, unspecified, uncomplicated; Z20.822 Contact with and (suspected) exposure to COVID-19; Z28.310 Unvaccinated for COVID-19
CPT/HCPCS: 36415; 71045; 80053; 81000; 85025; 86141; 87636

== ENCOUNTER 2022-07-31 13:02 | Inpatient (IN) | payer MEDICAID ==
[~2022-07-31] VITALS: Ht 168 cm; Wt 93.5 kg
[~2022-07-31 13:02] MED LIST changes: +AMLO-250 PO
--- NOTE | 2022-07-31 13:32 | ED EENT ---
History of Present Illness General Chief Complaint: Dental Problems/Pain Stated Complaint: INFECTION Nursing Triage Note: PT AMB TO [facility] WITH COMPLAINT OF WORSENING DENTAL INFECTION. WENT TO [facility] ON WEDNESDAY AND WAS PRESCRIBED AUGMENTIN AND MELOXICAM. WENT TO THE DENTAL TRIAGE NURSE AND WALK IN YESTERDAY FOR NO IMPROVEMENT IN SYMPTOMS AND WAS GIVEN TORADOL AND A SHOT OF ROCEPHIN. HAS DENTIST APPT FOR THE . Source: patient Exam Limitations: no limitations (EVGENY LONDONO) History of Present Illness Date Seen by Provider: Jul 31, 2022 Time Seen by Provider: 13:27 Initial Comments Patient is a 56-year-old female who presents ED with right lower dental pain. Patient states she started having some pain and discomfort on Wednesday. Started to notice swelling and redness to the right side of the face on Wednesday. She went to [facility] was prescribed Augmentin. She has taken 3 days worth of antibiotics. She states yesterday she noticed increased redness and swelling that has migrated to the anterior part of her neck. She went back yesterday and received a dose of Rocephin. It was recommended to come to the ED if symptoms worsen. She states the swelling and redness worsen last night but did notice some improvement this morning but reports difficulty opening and closing her mouth and difficulty eating secondary to pain. She is scheduled to follow-up with a dentist on 11 August. She has a scheduled appointment. She believes this is secondary to a fractured tooth while eating. She denies fever, throat p ain, nausea, chest pain, shortness of breath, vomiting, diarrhea, neck pain, malaise, weakness. During her follow-up visit yesterday she received 1 shot of Rocephin. She denies diabetes, CHF, COPD. (EVGENY LONDONO) Allergies and Home Medications Allergies Coded Allergies: acetaminophen (Verified Allergy, Unknown, 03/24/12) influenza virus vaccine, specific (Verified Allergy, Unknown, 03/24/12) levofloxacin (Verified Allergy, Unknown, 03/24/12) propoxyphene napsylate (Verified Allergy, Unknown, 03/24/12) Patient Home Medication List Home Medication List Reviewed: Yes (EVGENY LONDONO) Amlodipine Besylate (Amlodipine Besylate) 5 Mg Tablet, 5 MG PO DAILY Prescribed by: ALFREDO COFFEY on 12/23/21 1652 Lisinopril (Lisinopril) 10 Mg Tablet, 10 MG PO DAILY Prescribed by: ALFREDO COFFEY on 12/23/21 1702 Mupirocin (Mupirocin) 1 Gm Oin.pf.chuy, 1 GM TP BID Prescribed by: EDILIA MALIK on 01/18/18 0443 Review of Systems Review of Systems Constitutional: No chills, No diaphoresis, No malaise, No weakness Eyes: Denies Pain, Denies Photophobia Ears: Denies Dizziness, Denies Pain Nose: denies clots, denies congestion, denies pain, denies bloody discharge Mouth: denies swelling Throat: swelling; denies painful swallowing, denies difficulty with fluids Respiratory: No cough, No dyspnea on exertion Cardiovascular: No chest pain Gastrointestinal: No abdominal pain, No diarrhea, No nausea, No vomiting Musculoskeletal: No back pain, No joint pain Skin: change in color; No change in hair/nails (EVGENY LONDONO) Past Ngasdto-Nvcgqy-Wwquel Hx Patient Social History Tobacco Use?: Yes Tobacco type used: Cigarettes Smoking Status: Current Everyday Smoker Use of E-Cig and/or Vaping dev: No Substance use?: No Alcohol Use?: Yes Alcohol Frequency: Once in a while Pt feels they are or have been: No (EVGENY LONDONO) Immunizations Up To Date Influenza Vaccine Up-to-Date: No; Not Current (EVGENY LONDONO) Seasonal Allergies Seasonal Allergies: Yes (EVGENY LONDONO) Past Medical History Surgeries: Yes Abdominal, Gallbladder, Hysterectomy, Orthopedic, Tracheostomy Respiratory: Yes (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 GULLIAN BARRE" ? 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 Genitourinary: No Gastrointestinal: Yes Gastroesophageal Reflux, Diverticulosis, Polyps, Hiatal Hernia, Ulcer, Gall Bladder Disease, Irritable Bowel Musculoskeletal: Yes (CHRONIC NECK PAIN WITH CERVICAL FUSION) Arthritis, Fibromyalgia, Chronic Back Pain, Spasms Endocrine: Yes Hypothyroidsim HEENT: No Cancer: No Psychosocial: Yes Anxiety, PTSD, Suicide Attempts, Bipolar, Depression Integumentary: No Blood Disorders: No (EVGENY LONDONO) Physical Exam Vital Signs Vital Signs - First Documented 07/31/22 13:11 Temp 35.2 Pulse 79 Resp 16 B/P (MAP) 157/89 (111) Pulse Ox 99 O2 Delivery Room Air (MAHAMED SARAVIA MD) Height, Weight, BMI Height: 5'8.00" Weight: 165lbs. 0.0oz. [id number]; 33.00 BMI Method:Estimated General Appearance: WD/WN Eyes: bilateral eye normal inspection, bilateral eye PERRL, bilateral eye EOMI Ears: bilateral ear auricle normal, bilateral ear canal normal, bilateral ear TM normal Nose: normal inspection Mouth/Throat: other (Oropharynx patent. Dental caries noted. Swelling erythema to the right lower gums without obvious abscess. Decay noted throughout.) Neck: other (Erythema and swelling noted to the anterior neck. No stridor.) Cardiovascular: regular rate, rhythm, no edema, no gallop, no JVD Respiratory: chest non-tender, lungs clear, normal breath sounds, no respiratory distress Gastrointestinal: normal bowel sounds, non tender, soft Neurologic/Psychiatric: manager technical services II-XII nml as tested, no motor/sensory deficits, alert, normal mood/affect, oriented x 3 Skin: other (Erythema and swelling to the right side of face and right anterior neck.) (EVGENY LONDONO) Progress/Results/Core Measures Results/Orders Lab Results Laboratory Tests Test 07/31/22 13:36 Range/Units White Blood Count 8.9 4.3-11.0 10^3/uL Red Blood Count 4.25 3.80-5.11 10^6/uL Hemoglobin 13.0 11.5-16.0 g/dL Hematocrit 40 35-52 % Mean Corpuscular Volume 94 80-99 fL Mean Corpuscular Hemoglobin 31 25-34 pg Mean Corpuscular Hemoglobin Concent 33 32-36 g/dL Red Cell Distribution Width 13.7 10.0-14.5 % Platelet Count 219 130-400 10^3/uL Mean Platelet Volume 9.7 9.0-12.2 fL Immature Granulocyte % (Auto) 0 % Neutrophils (%) (Auto) 75 42-75 % Lymphocytes (%) (Auto) 16 12-44 % Monocytes (%) (Auto) 7 0-12 % Eosinophils (%) (Auto) 2 0-10 % Basophils (%) (Auto) 1 0-10 % Neutrophils # (Auto) 6.6 1.8-7.8 10^3/uL Lymphocytes # (Auto) 1.4 1.0-4.0 10^3/uL Monocytes # (Auto) 0.6 0.0-1.0 10^3/uL Eosinophils # (Auto) 0.1 0.0-0.3 10^3/uL Basophils # (Auto) 0.1 0.0-0.1 10^3/uL Immature Granulocyte # (Auto) 0.0 0.0-0.1 10^3/uL Sodium Level 139 135-145 MMOL/L Potassium Level 3.8 3.6-5.0 MMOL/L Chloride Level 106 98-107 MMOL/L Carbon Dioxide Level 21 21-32 MMOL/L Anion Gap 12 5-14 MMOL/L Blood Urea Nitrogen 5 L 7-18 MG/DL Creatinine 0.80 0.60-1.30 MG/DL Estimat Glomerular Filtration Rate 86 BUN/Creatinine Ratio 6 Glucose Level 174 H 70-105 MG/DL Calcium Level 10.2 H 8.5-10.1 MG/DL Corrected Calcium 10.4 H 8.5-10.1 MG/DL Total Bilirubin 0.3 0.1-1.0 MG/DL Aspartate Amino Transf (AST/SGOT) 26 5-34 U/L Alanine Aminotransferase (ALT/SGPT) 57 H 0-55 U/L Alkaline Phosphatase 104 40-136 U/L C-Reactive Protein High Sensitivity 27.16 H 0.00-0.50 MG/DL Total Protein 7.6 6.4-8.2 GM/DL Albumin 3.8 3.2-4.5 GM/DL (MAHAMED SARAVIA MD) Vital Signs/I&O 08/01/22 08/01/22 08/01/22 08/02/22 19:35 19:50 23:35 03:40 Temp 36.4 36.0 36.1 Pulse 78 70 76 Resp 16 18 18 B/P (MAP) 144/85 (104) 120/79 (93) 152/93 (112) Pulse Ox 94 97 96 O2 Delivery Room Air Room Air Room Air Room Air (MAHAMED SARAVIA MD) Blood Pressure Mean: 111 Departure Communication (Admissions) Time/Spoke to Admitting Phy: 14:57 Dr. Ruvalcaba will accept patient for IV antibiotics and pain medication (EVGENY LONDONO) Communication (PCP) Patient is a 56-year-old female presents ED with increased redness swelling pain to the right side of face and anterior neck. Currently on Augmentin since Wednesday. Worsening redness and swelling. Concerning for failed outpatient therapy. Patient with no difficulty swallowing or difficulty breathing but does have pain with eating to the right side of the face. Severe peridontal disease noted without any obvious fluid collection. Anterior erythematous and swelling of the neck. No stridor. Patient with normal white blood count. CRP at 27. Due to the worsening of symptoms and redness of the anterior neck recommend CT scan of the face and soft tissue neck. No obvious fluid collection but did note soft tissue swelling of the right anterior neck and right side of face. [place] noted to the right mandible without fluid collection. She did report some drainage around her tooth in her right lower mandible this morning. Patient scheduled to follow-up with a dentist on the at [facility]. Patient was given dose of IV clindamycin 600mg here. Discussed patient with Dr. Ruvalcaba hospitalist. I Recommend admission secondary to the soft tissue swelling of the neck as this potentially may worsen. He agrees and accepts patient at this time. Patient was given IV Toradol per his request and started on IV clindamycin. Patient agrees with admission. (EVGENY LONDONO) Impression Primary Impression: Facial cellulitis Disposition: ADMITTED INPATIENT Condition: Stable Admissions Decision to Admit Reason: Admit from ER (General) Decision to Admit/Date: Jul 31, 2022 Time/Decision to Admit Time: 14:56 (EVGENY LONDONO) Departure-Patient Inst. Referrals: ALBERTO MCGOWAN DO (PCP/Family) Primary Care Physician ATTENDING PHYSICIAN NOTE: I was physically present as attending physician in the emergency department during the care of this patient, but I was not directly involved in the decision making or delivery of care for this patient. (MAHAMED SARAVIA MD) EVGENY LONDONO Jul 31, 2022 13:32 MAHAMED SARAVIA MD Aug 02, 2022 06:26
[2022-07-31 13:42] LABS: BASOPHILS # (AUTO) 0.1 10^3/uL (0.0-0.1); BASOPHILS % (AUTO) 1 % (0-10); EOSINOPHILS # (AUTO) 0.1 10^3/uL (0.0-0.3); EOSINOPHILS % (AUTO) 2 % (0-10); HEMATOCRIT 40 % (35-52); LYMPHOCYTES # (AUTO) 1.4 10^3/uL (1.0-4.0); LYMPHOCYTES % (AUTO) 16 % (12-44); MEAN CORPUSCULAR HEMOGLOBIN 31 pg (25-34); MEAN CORPUSCULAR HGB CONC 33 g/dL (32-36); MEAN CORPUSCULAR VOLUME 94 fL (80-99); MEAN PLATELET VOLUME 9.7 fL (9.0-12.2); MONOCYTES # (AUTO) 0.6 10^3/uL (0.0-1.0); MONOCYTES % (AUTO) 7 % (0-12); NEUTROPHILS # (AUTO) 6.6 10^3/uL (1.8-7.8); NEUTROPHILS % (AUTO) 75 % (42-75); PLATELET COUNT 219 10^3/uL (130-400); WHITE BLOOD COUNT 8.9 10^3/uL (4.3-11.0)
[2022-07-31] MEDS ORDERED: NS 100 ML (IVPB) BAG IV ONE (13:45)
[2022-07-31] MEDS ORDERED: HOLD METFORMIN - RECEIVED CONTRAST 20 ML VIAL IV SCH (13:45)
[2022-07-31] MEDS ORDERED: IOHEXOL 350 MG/ML 100 ML (OMNIPAQUE 350) VIAL IV ONE (13:45)
[2022-07-31 13:54] LABS: ALBUMIN 3.8 GM/DL (3.2-4.5); POTASSIUM 3.8 MMOL/L (3.6-5.0)
[2022-07-31 13:55] LABS: CALCIUM 10.2 MG/DL (8.5-10.1)
[2022-07-31 13:57] LABS: TOTAL PROTEIN 7.6 GM/DL (6.4-8.2)
[2022-07-31 13:58] LABS: BILIRUBIN,TOTAL 0.3 MG/DL (0.1-1.0)
[2022-07-31 14:00] LABS: CREATININE SERUM 0.8 MG/DL (0.60-1.30)
[2022-07-31] MEDS ORDERED: CLINDAMYCIN 600 MG/50 ML IVPB 50 ML IV ONE (14:00)
--- NOTE | 2022-07-31 14:17 | Diagnostic Imaging Report ---
PROCEDURE: CT neck soft tissue with contrast. TECHNIQUE: Multiple contiguous axial images were obtained through the neck after the administration of contrast. Auto Exposure Controls were utilized during the CT exam to meet ALARA standards for radiation dose reduction. INDICATION: Jaw pain. Worsening dental infection. Erythema of the neck. COMPARISON: None. FINDINGS: There is soft tissue fullness with decreased attenuation along the body of the mandible on the right measuring 2.7 x 1.1 cm and 2.0 cm craniocaudal. There is mild soft tissue edema in the superficial soft tissues of the face and neck on the right. Mildly prominent reactive lymph nodes are seen in the neck bilaterally. No well-formed abscess is seen. Scattered periapical lucencies and dental caries are seen, most prominent involving the maxillary and mandibular molars on the left. No evidence of acute facial fracture. The posterior nasopharynx and oropharynx demonstrate appropriate symmetry. There is no displacement of the parapharyngeal fat planes. There is no abnormal process evident within the prevertebral or retropharyngeal space. There is no evidence of abnormal thickening of the epiglottis or aryepiglottic folds. The vocal folds appear symmetric. The parotid, submandibular and thyroid gland are unremarkable. The vascular structures the neck demonstrate no evidence of high-grade stenosis on this nondedicated exam. The visualized lung apices are clear. The visualized intracranial contents demonstrate no evidence of pathologic intracranial enhancement or intracranial mass effect. Visualized orbital contents are unremarkable. The visualized paranasal sinuses are clear. The mastoids and middle ears are clear. No acute osseous abnormality in the cervical spine. ACDF changes are visualized at C5-C6. IMPRESSION: 1. Soft tissue fullness and inflammation in the face and neck on the right. There is likely phlegmon along the body of the mandible on the right. No well-formed fluid collection is seen to suggest abscess at this time. Recommend continued close follow-up. 2. Periodontal disease, greatest involving the maxillary and mandibular molars on the left. Recommend dental consultation to further evaluate. 3. Mildly prominent cervical lymph nodes bilaterally, likely reactive. Dictated by: Dictated on workstation # [id number]
[2022-07-31] MEDS ORDERED: KETOROLAC 60 MG/2 ML VIAL IM ONE (15:00)
[2022-07-31] MEDS ORDERED: KETOROLAC 60 MG/2 ML VIAL IV ONE (15:15)
[2022-07-31] MEDS ORDERED: CATHETER FLUSH 10 ML SYR IVP PRN (16:15)
[2022-07-31] MEDS: ONDANSETRON 4 MG (ZOFRAN) ORAL DISSOLVE TAB PO PRN ×2 (17:58→22:31)
[2022-07-31] MEDS: HYDROcodone/APAP 5 MG/325 MG (LORTAB) TAB PO PRN ×2 (18:28→22:31)
[2022-07-31 19:24] VITALS: BP 118/78
[2022-07-31] MEDS: CLINDAMYCIN 600 MG/50 ML IVPB 50 ML IV SCH (22:04)
[2022-07-31] MEDS: CATHETER FLUSH 10 ML SYR IVP SCH (22:04)
[2022-07-31] MEDS: KETOROLAC 30 MG/ML VIAL IV SCH (22:04)
[2022-07-31 23:58] VITALS: BP 122/74
[2022-08-01] VITALS (7 sets, daily range): BP systolic 118–155; BP diastolic 73–90
[2022-08-01] MEDS: HYDROcodone/APAP 5 MG/325 MG (LORTAB) TAB PO PRN ×6 (02:20→22:53)
[2022-08-01] MEDS: CLINDAMYCIN 600 MG/50 ML IVPB 50 ML IV SCH ×3 (05:53→21:09)
[2022-08-01] MEDS: KETOROLAC 30 MG/ML VIAL IV SCH ×3 (05:53→21:10)
[2022-08-01] MEDS: CATHETER FLUSH 10 ML SYR IVP SCH ×3 (05:54→21:10)
[2022-08-01] MEDS: ONDANSETRON 4 MG (ZOFRAN) ORAL DISSOLVE TAB PO PRN ×2 (06:37→19:39)
--- NOTE | 2022-08-01 11:46 | History & Physical-Hospitalist ---
History of Present Illness HPI/Chief Complaint Patient is a 56-year-old female who presents ED with right lower dental pain. Patient states she started having some pain and discomfort on Wednesday. Started to notice swelling and redness to the right side of the face on Wednesday. She went to [facility] was prescribed Augmentin. She has taken 3 days worth of antibiotics. She states yesterday she noticed increased redness and swelling that has migrated to the anterior part of her neck. She went back yesterday and received a dose of Rocephin. It was recommended to come to the ED if symptoms worsen. She states the swelling and redness worsen last night but did notice some improvement this morning but reports difficulty opening and closing her mouth and difficulty eating secondary to pain. She is scheduled to follow-up with a dentist on 11 August. She has a scheduled appointment. She believes this is secondary to a fractured tooth while eating. She denies fever, throat pain, nausea, chest pain, shortness of breath, vomiting, diarrhea, neck pain, malaise, weakness. During her follow-up visit yesterday she received 1 shot of Rocephin. She denies diabetes, CHF, COPD Upon my arrival the patient reported that she was feeling better with decreased swelling still still having intermittent pain but again not as bad. She reported that she had been feeling feverish at home but has been afebrile here. She reports that she has had a bad tooth that cracked and she is in the process of seeing the dentist through [facility] for likely extraction. Date Seen 08/01/22 Time Seen by a Provider: 11:00 Attending Physician Guicho Gongora DO PCP Admitting Physician: Oj Brush MD Attending Physician: Oj Brush MD Referring Physician Date of Admission Jul 31, 2022 at 15:45 Home Medications & Allergies Home Medications Reviewed patient Home Medication Reconciliation performed by pharmacy medication reconciliations service desk technician and/or nursing. Patients Allergies have been reviewed. Allergies Allergies Coded Allergies acetaminophen (Verified Allergy, Unknown, 03/24/12) influenza virus vaccine, specific (Verified Allergy, Unknown, 03/24/12) levofloxacin (Verified Allergy, Unknown, 03/24/12) propoxyphene napsylate (Verified Allergy, Unknown, 03/24/12) Past [id number]-[id number] Hx Patient Social History Tobacco Use?: Yes Tobacco type used: Cigarettes Smoking Status: Current Everyday Smoker Use of E-Cig and/or Vaping dev: No Substance use?: No Alcohol Use?: Yes Alcohol Frequency: Once in a while Pt feels they are or have been: No Immunizations Up To Date Tetanus Booster (TDap): Unknown Hepatitis A: No Hepatitis B: No Seasonal Allergies Seasonal Allergies: Yes Current Status status: No status: No Advance Directives: No Communicates: Verbally Primary Language: Malaysian Preferred Spoken Language: Malaysian Is interpretation needed?: No Implanted or Applied Medical D: None Past Medical History Surgeries: Abdominal, Gallbladder, Hysterectomy, Orthopedic, Tracheostomy Asthma Hypertension 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 0.0oz. [id number]; 33.12 BMI Method:Estimated General Appearance: No Apparent Distress HEENT: Other (Significant periodontitis with dental decay right posterior molar appears to be fractured there is a shallow adjacent buccal ulcer with no induration. There is significant swelling little anterior to the parotid gland on the face extending down the neck and upper right cheek slightly tender as well as warm. No neck adenopathy noted.) Respiratory: Chest Non Tender, Lungs Clear, Normal Breath Sounds, No Accessory Muscle Use, No Respiratory Distress Cardiovascular: Regular Rate, Rhythm, No Edema, No Gallop, No JVD, No Murmur, Normal Peripheral Pulses Gastrointestinal: Normal Bowel Sounds, No Organomegaly, No Pulsatile Mass, Non Tender, Soft Results Results/Procedures Labs Laboratory Tests 07/31/22 13:36 Patient resulted labs reviewed. Assessment/Plan Admission Diagnosis 1. Presumed right dental abscess with extensive right facial cellulitis. No evidence for gas gangrene patient appears to be responding to clindamycin we will continue that. Patient in the process of dental evaluation for likely extraction to follow considering likely abscess and severe periodontitis. Admission Status: Inpatient Order (span 2 midnights) Reason for Inpatient Admission: See admission diagnosis OJ BRUSH MD Aug 01, 2022 11:46
[2022-08-02] MEDS: HYDROcodone/APAP 5 MG/325 MG (LORTAB) TAB PO PRN ×5 (03:00→22:27)
[2022-08-02 03:40] VITALS: BP 152/93
[2022-08-02] MEDS: KETOROLAC 30 MG/ML VIAL IV SCH ×3 (05:43→22:27)
[2022-08-02] MEDS: CLINDAMYCIN 600 MG/50 ML IVPB 50 ML IV SCH ×3 (05:43→22:27)
[2022-08-02] MEDS: CATHETER FLUSH 10 ML SYR IVP SCH ×3 (05:44→22:27)
[2022-08-02 07:17] VITALS: BP 144/86
[2022-08-02] MEDS: ONDANSETRON 4 MG (ZOFRAN) ORAL DISSOLVE TAB PO PRN (09:45)
[2022-08-02 09:49] LABS: BASOPHILS # (AUTO) 0.1 10^3/uL (0.0-0.1); BASOPHILS % (AUTO) 1 % (0-10); EOSINOPHILS # (AUTO) 0.1 10^3/uL (0.0-0.3); EOSINOPHILS % (AUTO) 3 % (0-10); HEMATOCRIT 36 % (35-52); HEMOGLOBIN 12.1 g/dL (11.5-16.0); LYMPHOCYTES # (AUTO) 1.2 10^3/uL (1.0-4.0); LYMPHOCYTES % (AUTO) 24 % (12-44); MEAN CORPUSCULAR HEMOGLOBIN 31 pg (25-34); MEAN CORPUSCULAR HGB CONC 33 g/dL (32-36); MEAN CORPUSCULAR VOLUME 93 fL (80-99); MEAN PLATELET VOLUME 9.3 fL (9.0-12.2); MONOCYTES # (AUTO) 0.4 10^3/uL (0.0-1.0); MONOCYTES % (AUTO) 8 % (0-12); NEUTROPHILS # (AUTO) 3.1 10^3/uL (1.8-7.8); NEUTROPHILS % (AUTO) 63 % (42-75); PLATELET COUNT 225 10^3/uL (130-400); WHITE BLOOD COUNT 4.9 10^3/uL (4.3-11.0)
--- NOTE | 2022-08-02 11:08 | Progress Note - Hospitalist ---
Subjective HPI/CC On Admission Date Seen by Provider: Aug 02, 2022 Time Seen by Provider: 08:00 Patient is a 56-year-old female who presents ED with right lower dental pain. Patient states she started having some pain and discomfort on Wednesday. Started to notice swelling and redness to the right side of the face on Wednesday. She w ent to [facility] was prescribed Augmentin. She has taken 3 days worth of antibiotics. She states yesterday she noticed increased redness and swelling that has migrated to the anterior part of her neck. She went back yesterday and received a dose of Rocephin. It was recommended to come to the ED if symptoms worsen. She states the swelling and redness worsen last night but did notice some improvement this morning but reports difficulty opening and closing her mouth and difficulty eating secondary to pain. She is scheduled to follow-up with a dentist on 11 August. She has a scheduled appointment. She believes this is secondary to a fractured tooth while eating. She denies fever, throat pain, nausea, chest pain, shortness of breath, vomiting, diarrhea, neck pain, malaise, weakness. During her follow-up visit yesterday she received 1 shot of Rocephin. She denies diabetes, CHF, COPD Upon my arrival the patient reported that she was feeling better with decreased swelling still still having intermittent pain but again not as bad. She reported that she had been feeling feverish at home but has been afebrile here. She reports that she has had a bad tooth that cracked and she is in the process of seeing the dentist through [facility] for likely extraction. Subjective/Events-last exam Patient still having pain but is noted decreased swelling and pain is not chronic it comes and goes worse with eating. She denies chills or fever and voices no other complaints. Objective Exam Vital Signs Vital Signs Date Time Temp Pulse Resp B/P (MAP) Pulse Ox O2 Delivery O2 Flow Rate FiO2 08/02/22 07:17 36.8 78 18 144/86 (105) 95 Room Air Capillary Refill : Less Than 3 Seconds General Appearance: No Apparent Distress HEENT: Other (Decreasing right facial swelling and induration decreased erythema) Respiratory: Chest Non Tender, Lungs Clear, Normal Breath Sounds, No Accessory Muscle Use, No Respiratory Distress Cardiovascular: Regular Rate, Rhythm, No Edema, No Gallop, No JVD, No Murmur, Normal Peripheral Pulses Results/Procedures Lab Laboratory Tests 08/02/22 09:42 Patient resulted labs reviewed. Assessment/Plan Assessment and Plan Assess & Plan/Chief Complaint . Presumed right dental abscess with extensive right facial cellulitis. No evidence for gas gangrene patient appears to be responding to clindamycin we will continue that. Patient in the process of dental evaluation for likely ext raction to follow considering likely abscess and severe periodontitis.Clinically improving continue 1 more day of IV clindamycin and then switch to p.o. 300 mg every 8 hours PC tomorrow and consider discharge. ZAHEER BRUSH MD Aug 02, 2022 11:08
[2022-08-02 11:15] VITALS: BP 129/71
[2022-08-02 16:50] VITALS: BP 153/83
[2022-08-02 19:30] VITALS: BP 165/91
[2022-08-02] MEDS ORDERED: DULO30CA49 PO (22:35)
[2022-08-02] MEDS ORDERED: PROP20TA5 PO (22:35)
[2022-08-02] MEDS ORDERED: OMEP40CA6 PO (22:35)
[2022-08-02] MEDS ORDERED: OLAN10TA71 PO (22:35)
[2022-08-02] MEDS ORDERED: TIZA-186 PO (22:39)
[2022-08-02] MEDS ORDERED: PREG150C46 PO (22:39)
[2022-08-02] MEDS ORDERED: HYDR-700 PO (22:40)
[2022-08-02 23:03] VITALS: BP 130/60
[2022-08-03] MEDS: HYDROcodone/APAP 5 MG/325 MG (LORTAB) TAB PO PRN ×3 (02:19→11:08)
[2022-08-03] MEDS ORDERED: SIME125T50 PO (03:23)
[2022-08-03] MEDS: KETOROLAC 30 MG/ML VIAL IV SCH (05:34)
[2022-08-03] MEDS: CATHETER FLUSH 10 ML SYR IVP SCH (05:34)
[2022-08-03] MEDS: CLINDAMYCIN 600 MG/50 ML IVPB 50 ML IV SCH (05:34)
[2022-08-03 07:41] VITALS: BP 161/87
[2022-08-03 08:26] LABS: BASOPHILS # (AUTO) 0.1 10^3/uL (0.0-0.1); BASOPHILS % (AUTO) 1 % (0-10); EOSINOPHILS # (AUTO) 0.1 10^3/uL (0.0-0.3); EOSINOPHILS % (AUTO) 3 % (0-10); HEMATOCRIT 36 % (35-52); LYMPHOCYTES # (AUTO) 1.4 10^3/uL (1.0-4.0); LYMPHOCYTES % (AUTO) 30 % (12-44); MEAN CORPUSCULAR HEMOGLOBIN 31 pg (25-34); MEAN CORPUSCULAR HGB CONC 33 g/dL (32-36); MEAN CORPUSCULAR VOLUME 91 fL (80-99); MEAN PLATELET VOLUME 9.3 fL (9.0-12.2); MONOCYTES # (AUTO) 0.5 10^3/uL (0.0-1.0); MONOCYTES % (AUTO) 11 % (0-12); NEUTROPHILS # (AUTO) 2.5 10^3/uL (1.8-7.8); NEUTROPHILS % (AUTO) 55 % (42-75); PLATELET COUNT 256 10^3/uL (130-400); WHITE BLOOD COUNT 4.5 10^3/uL (4.3-11.0)
[2022-08-03 08:49] LABS: ALBUMIN 3.3 GM/DL (3.2-4.5); BILIRUBIN,TOTAL 0.3 MG/DL (0.1-1.0); CALCIUM 9.4 MG/DL (8.5-10.1); CREATININE SERUM 0.69 MG/DL (0.60-1.30); POTASSIUM 4.1 MMOL/L (3.6-5.0); TOTAL PROTEIN 6.6 GM/DL (6.4-8.2)
[2022-08-03] MEDS ORDERED: OLAN10TA71 PO (08:52)
[2022-08-03] MEDS ORDERED: MELO7.5T46 PO (08:52)
[2022-08-03] MEDS ORDERED: AMOX1TAB12 PO (08:52)
[2022-08-03] MEDS ORDERED: AMLO-251 PO (08:54)
[2022-08-03] MEDS ORDERED: LISI20TA26 PO (08:54)
[2022-08-03] MEDS ORDERED: ROSU10TA28 PO (08:54)
[2022-08-03] MEDS ORDERED: IBUP-2473 PO (08:58)
[2022-08-03] MEDS ORDERED: CHOL-34 PO (08:59)
[2022-08-03] MEDS ORDERED: lisINopril 10 MG (PRINIVIL) TABLET PO SCH (09:00)
[2022-08-03] MEDS ORDERED: ZINC50TA51 PO (09:00)
[2022-08-03] MEDS ORDERED: amLODIPine 5 MG (NORVASC) TAB PO SCH (09:00)
[2022-08-03] MEDS ORDERED: ASCO-262 PO (09:00)
[2022-08-03 11:18] VITALS: BP 171/81
[2022-08-03] MEDS ORDERED: ACHD5005 PO (11:25)
[2022-08-03] MEDS ORDERED: CLIN-144 PO (11:25)
--- NOTE | 2022-08-03 11:25 | Discharge Summary ---
Discharge Summary Hospital Course Was the Problem List Reviewed?: Yes Problems/Dx: (1) Facial cellulitis Status: Acute (2) HTN (hypertension) Status: Acute Hospital Course Date of Admission: Aug 01, 2022 at 11:46 Admission Diagnosis : Family Physician/Provider: Guicho Gongora DO Date of Discharge: 08/03/22 Discharge Diagnosis: [ ] Hospital Course: Brief course after admitted for facial cellulitis from dental caries. IV abx initiated and supportive care. Patient was much improved at [place]. Labs and Pending Lab Test: Laboratory Tests 08/03/22 08:16: White Blood Count 4.5, Red Blood Count 3.94, Hemoglobin 12.0, Hematocrit 36, Mean Corpuscular Volume 91, Mean Corpuscular Hemoglobin 31, Mean Corpuscular Hemoglobin Concent 33, Red Cell Distribution Width 12.9, Platelet Count 256, Mean Platelet Volume 9.3, Immature Granulocyte % (Auto) 0, Neutrophils (%) (Auto) 55, Lymphocytes (%) (Auto) 30, Monocytes (%) (Auto) 11, Eosinophils (%) (Auto) 3, Basophils (%) (Auto) 1, Neutrophils # (Auto) 2.5, Lymphocytes # (Auto) 1.4, Monocytes # (Auto) 0.5, Eosinophils # (Auto) 0.1, Basophils # (Auto) 0.1, Immature Granulocyte # (Auto) 0.0, Sodium Level 133L, Potassium Level 4.1, Chloride Level 100, Carbon Dioxide Level 24, Anion Gap 9, Blood Urea Nitrogen 6L , Creatinine 0.69, Estimat Glomerular Filtration Rate 102, BUN/Creatinine Ratio 9, Glucose Level 102, Calcium Level 9.4, Corrected Calcium 10.0, Total Bilirubin 0.3, Aspartate Amino Transf (AST/SGOT) 407H, Alanine Aminotransferase (ALT/SGPT) 360H, Alkaline Phosphatase 339H, Total Protein 6.6, Albumin 3.3 Home Meds Active Clindamycin HCl 300 Mg Capsule 300 Mg PO TID Reported Vitamin C (Ascorbate Calcium) 500 Mg Tablet 500 Mg PO 1200 Zinc (Zinc Amino Acid Chelate) 50 Mg Tablet 50 Mg PO 1200 Vitamin D3 (Cholecalciferol (Vitamin D3)) 25 Mcg (1000 Unit) Tablet 25 Mcg PO 1200 Ibuprofen 200 Mg Tablet 600 Mg PO Q8H PRN TAKES 3 (200MG) TABS Rosuvastatin Calcium 10 Mg Tablet 10 Mg PO DAILY Amlodipine Besylate 10 Mg Tablet 10 Mg PO DAILY Lisinopril 20 Mg Tablet 20 Mg PO DAILY Amox Tr-K Clv 875-125 mg Tab (Amoxicillin/Potassium Clav) 875 Mg-125 Mg Tablet 1 Ea PO BID FILLED 07-28-2022 #20/10 DAY SUPPLY Meloxicam 7.5 Mg Tablet 7.5 Mg PO BID Hydroxyzine HCl 25 Mg Tablet 25 Mg PO BID PRN Pregabalin 150 Mg Capsule 150 Mg PO BID PRN Tizanidine HCl 4 Mg Tablet 4 Mg PO BID PRN Duloxetine HCl 30 Mg Capsule.dr 30 Mg PO DAILY Propranolol HCl 20 Mg Tablet 20 Mg PO BID Olanzapine 10 Mg Tablet 10 Mg PO HS Omeprazole 40 Mg Capsule.dr 40 Mg PO DAILY daily 30 minutes before morning meal Assessment/Pt Instructions pcp 1 week Dental care Discharge Planning: <30 minutes discharge planning Discharge Instructions Discharge Diet: No Restrictions Discharge Physical Examination Vital Signs Vital Signs Date Time Temp Pulse Resp B/P (MAP) Pulse Ox O2 Delivery O2 Flow Rate FiO2 08/03/22 11:18 36.6 78 18 171/81 (111) 95 Room Air General Appearance: No Apparent Distress, WD/WN HEENT: Other (facial edema resolved) Allergies: Coded Allergies: influenza virus vaccine, specific (Verified Allergy, Unknown, 03/24/12) levofloxacin (Verified Allergy, Unknown, 03/24/12) propoxyphene napsylate (Verified Allergy, Unknown, 03/24/12) Discharge Summary Date of Admission Aug 01, 2022 at 11:46 Date of Discharge Discharge Date: Aug 03, 2022 Admission Diagnosis 1. Presumed right dental abscess with extensive right facial cellulitis. No evidence for gas gangrene patient appears to be responding to clindamycin we will continue that. Patient in the process of dental evaluation for likely extraction to follow considering likely abscess and severe periodontitis. SHIMA BAKER DO Aug 03, 2022 11:25
[2022-08-04] MEDS ORDERED: lisINopril 20 MG (PRINIVIL) TABLET PO SCH (09:00)
== END 2022-08-03 12:15 | disposition home or self-care (01) | DRG 603 ==
LOC: EDUNIT# 13:02 → ER 13:04 → 4TH 15:45 → OBSVTOIN 08-01 11:46 → INTOOBSV 08-02 11:46
PROVIDERS: ADMIT Internal Medicine; ATTEND Internal Medicine
DX: L03.211 Cellulitis of face (principal); K04.7 Periapical abscess without sinus; K05.30 Chronic periodontitis, unspecified; I10 Essential (primary) hypertension; F17.210 Nicotine dependence, cigarettes, uncomplicated; J45.909 Unspecified asthma, uncomplicated; G62.9 Polyneuropathy, unspecified; K21.9 Gastro-esophageal reflux disease without esophagitis; K57.90 Diverticulosis of intestine, part unspecified, without perforation or abscess without bleeding; M19.90 Unspecified osteoarthritis, unspecified site; M79.7 Fibromyalgia; G89.29 Other chronic pain; M54.9 Dorsalgia, unspecified; E03.9 Hypothyroidism, unspecified; F41.9 Anxiety disorder, unspecified; F43.10 Post-traumatic stress disorder, unspecified; F31.9 Bipolar disorder, unspecified
CPT/HCPCS: 36415; 70491; 80053; 85025; 86141; G0378

== ENCOUNTER 2022-09-23 11:50 | Outpatient (CLI) | payer MEDICAID ==
[~2022-09-23] VITALS: Ht 165.1 cm; Wt 93.9 kg
[~2022-09-23 11:50] MED LIST changes: +ACHD5005 PO; +AMLO-251 PO; +AMOX1TAB12 PO; +ASCO-262 PO; +CHOL-34 PO; +CLIN-144 PO; +DULO30CA49 PO; +IBUP-2473 PO; +LISI20TA26 PO; +MELO7.5T46 PO; +OLAN10TA71 PO; +OMEP40CA6 PO; +PREG150C46 PO; +PROP20TA5 PO; +ROSU10TA28 PO; +SIME125T50 PO; +ZINC50TA51 PO
== END 2022-09-23 15:18 | disposition home or self-care (01) ==
LOC: PREOP 11:50
PROVIDERS: ATTEND Surgery
DX: Z01.818 Encounter for other preprocedural examination (principal)

== ENCOUNTER 2022-10-05 09:19 | Day surgery (SDC) | payer MEDICAID ==
[~2022-10-05] VITALS: Ht 165.1 cm; Wt 93.9 kg
--- NOTE | 2022-10-05 09:34 | Progress Note-Pre Operative ---
Pre-Operative Progress Note Date of Available H&P: Sep 22, 2022 Date H&P Reviewed: Oct 05, 2022 Time H&P Reviewed: 09:31 History & Physical: H&P Reviewed, Patient Examed, No changes noted Pre-Operative Diagnosis: Hx of Polyps, Chronic Gastritis VINH BROWN DO Oct 05, 2022 09:34
[2022-10-05] MEDS ORDERED: PROPOFOL INJECTION 50 ML IV ONE (09:42)
[2022-10-05] MEDS ORDERED: LACTATED RINGERS 1,000 ML IV STA (09:57)
[2022-10-05] MEDS ORDERED: HURRICAINE EXT TUBE (BENZOCAINE) XX PRN (10:00)
[2022-10-05 10:01] VITALS: BP 118/83
[2022-10-05] MEDS ORDERED: MIDAZOLAM 2 MG/2 ML (VERSED) VIAL ONE (10:42)
[2022-10-05] MEDS ORDERED: proPOfol 200 MG/20 ML (DIPRIVAN) VIAL IV ONE (11:23)
[2022-10-05 11:25] VITALS: BP 100/60
[2022-10-05 11:30] VITALS: BP 101/56
--- NOTE | 2022-10-05 11:30 | Progress Note-Post Operative ---
Post-Operative Progess Note Surgeon (s)/Transition Mgr Rn (s) Surgeon VINH BROWN DO Transition Mgr Rn: Mert Rios, MSIII Pre-Operative Diagnosis Hx of Polyps, Chronic Gastritis Post-Operative Diagnosis Gastritis Hiatal hernia Esophagitis Diverticula polyps int hemorrhoids Procedure & Operative Findings Date of Procedure 10/05/22 Procedure Performed/Findings EGD with bx Colonoscopy with snare Colonoscopy with cold bx PROCEDURE NOTE: After informed consent was obtained, the patient was brought to the endoscopy suite, placed in bed in left lateral decubitus position. She was administered IV sedation by the MACHINE PULLER who then monitored vitals the entire time, heart rate, blood pressure and pulse ox and the scope was inserted down the mouth through the esophagus into the stomach. On the way down, noted some mild esophagitis, took a picture, pushed into the stomach, pushed past the antrum into the duodenum. Duodenum looked good. Pulled back and did a biopsy of antrum, then retroflexed the scope, saw moderate grade III AFS hiatal hernia, took a picture of this and then pulled the scope into the GE junction, took another picture of the hiatal hernia and then did a biopsy of the GE junction. Pushed the scope back into the stomach, suctioned all the air out of the stomach. At this point pulled the scope up the esophagus and out the mouth. Switched camera, switched gloves, went down below and started the colonoscopy. As I pushed in I noted diverticula and took a picture. Then pushed in to about 150 cm and pushed into the cecum, took a picture of appendiceal orifice and noted the ileocecal valve. Just outside the cecum I saw a small flat polyp that I was able to remove with cold biopsy. Then slowly withdrew the scope insufflating to look circumferentially at the magallon starting in the cecum, up the ascending colon to the hepatic flexure, then down the transverse colon to the splenic flexure, into the descending colon. I found two large flat polyps in the descending colon that I was able to completely remove with snare polypectomy and some heat. Then down into the sigmoid and finally into the rectal vault. I retroflexed the scope. Took picture of the internal hemorrhoids. The patient tolerated the procedure and she recovered in the endoscopy suite. Recommended for repeat colonoscopy in 5 years Anesthesia Type IV sedation by MACHINE PULLER Estimated Blood Loss Estimated blood loss (mL): scant Specimens/Packing Specimens Removed antral bx GE jxn bx Asc colon bx Desc colon polyp x 2 VINH BROWN DO Oct 05, 2022 11:30
--- NOTE | 2022-10-05 11:31 | Endoscopy Discharge Instruct ---
Endo Procedure/Findings Findings 1.: Gastritis 2.: Hiatal Hernia 3.: Polyp 4.: Diverticulosis, Internal Hemorrhoids Discharge Instructions - Activity: You might feel a little sleepy until tomorrow. This is due to the medicine you received to relax you. Until tomorrow, you should: NOT drive a car, operate machinery or power tools. NOT drink any alcoholic beverages. NOT make any important decisions or sign importortant papers. Do not return to work until tomorrow, unless otherwise instructed. Resume previous activities tomorrow. Diet: Start by taking liquids. If you tolerate liquids, advance to solid food. 1.: EGD in 3 years 2.: Colonscopy in 5 years Notify Physician - If you experience excessive bleeding, unusual abdominal pain, fever, or chest pain, contact your doctor immediately. Follow-Up: Other Follow up in my office in one week VINH BROWN DO Oct 05, 2022 11:31
[2022-10-05 11:35] VITALS: BP 101/56
--- NOTE | 2022-10-05 11:40 | Anesthesia-General Post-Op ---
MAC Patient Condition Mental Status/LOC: Same as Preop Cardiovascular: Satisfactory Nausea/Vomiting: Absent Respiratory: Satisfactory Pain: Controlled Complications: Absent Post Op Complications Complications None Follow Up Care/Instructions Patient Instructions None needed. Anesthesiology Discharge Order Discharge Order Patient is doing well, no complaints, stable vital signs, no apparent adverse anesthesia problems. No complications reported per nursing. OUMOU NARVAEZ CRNA Oct 05, 2022 11:40
[2022-10-05 11:52] VITALS: BP 101/56
== END 2022-10-05 11:58 | disposition home or self-care (01) ==
LOC: ENDO 09:19
PROVIDERS: ATTEND Surgery
DX: Z12.11 Encounter for screening for malignant neoplasm of colon (principal); D12.2 Benign neoplasm of ascending colon; K29.50 Unspecified chronic gastritis without bleeding; K63.5 Polyp of colon; K57.30 Diverticulosis of large intestine without perforation or abscess without bleeding; K64.8 Other hemorrhoids; K44.9 Diaphragmatic hernia without obstruction or gangrene; K21.00 Gastro-esophageal reflux disease with esophagitis, without bleeding; Z85.038 Personal history of other malignant neoplasm of large intestine; E66.9 Obesity, unspecified; F17.210 Nicotine dependence, cigarettes, uncomplicated; Z68.34 Body mass index [BMI] 34.0-34.9, adult; Z28.310 Unvaccinated for COVID-19